=== PATIENT | female | born 1990 | race Caucasian/White ===

== ENCOUNTER 2022-12-19 15:19 | Emergency (ER) | payer OTHER, SELFPAY ==
[2022-12-19 15:26] VITALS: BP 139/81; PULSE 50; RESP 18; TEMP 36.4; O2SAT 100
--- NOTE | 2022-12-19 15:29 | ED.DENTAL ---
HPI - Dental/Oral General Chief complaint: Dental/Oral Stated complaint: Toothache Source: patient and RN notes reviewed History of Present Illness HPI Narrative: 32-year-old female presents to urgent care with complaints of right upper dental pain x2 weeks. Patient states her pain is intermittent. Patient states she had a filling up there at 1 time which she knows has fallen out at some point. Denies any fevers, chills, vomiting, trouble swallowing, or trouble breathing. Patient has been taking Tylenol and applying warm packs for comfort. Some parts of this dictation were generated by voice recognition software and may contain typographical and/or grammatical inaccuracies. Related Data Home Medications Medication Instructions Recorded Confirmed medroxyprogesterone 150 mg/mL See Rx Instructions .Route .COMPLEX 12/19/22 12/19/22 intramuscular syringe Allergies Allergy/AdvReac Type Severity Reaction Status Date / Time No Known Allergies Allergy Unverified 12/19/22 15:36 Review of Systems Review of Systems: CONSTITUTIONAL: Denies fever, chills, or sweats. EYES: Denies visual changes, redness, or discharge. ENT: Denies otalgia and sore throat. Right upper dental pain CARDIOVASCULAR: Denies chest pain, palpitations, or edema. RESPIRATORY: Denies cough or dyspnea. GASTROINTESTINAL: Denies abdominal pain, nausea, vomiting, or diarrhea. GENITOURINARY: Denies dysuria or hematuria. SKIN: Denies rash or itching. MUSCULOSKELETAL: Denies back pain, joint pain, or myalgia. NEUROLOGIC: Denies headache, numbness, or weakness. Pertinent positives per HPI. PMFSH Comments At the time of my signature, I reviewed and agree with the nursing past medical, surgical, social, and family history. There is no relevant family history pertinent to the patient complaint. Exam Narrative: GENERAL: This is a well-nourished, well-developed patient, in no apparent distress. HEAD: normocephalic, atraumatic. EYES: Sclera clear/white. Vision is grossly intact. EARS: External ears normal, auditory canals clear and without drainage. Hearing grossly intact. MOUTH: Slight swelling in the gums around teeth #2 & 3. Teeth #s 30-32 noted to be broken and decayed. NOSE: External nose normal with no obvious nasal discharge, nares without redness, no rhinorrhea. THROAT: Mucous membranes moist, posterior pharynx clear. NECK: Neck supple, non-tender without lymphadenopathy, masses or thyromegaly. CARDIOVASCULAR: Bradycardic, which pt states is normal for her. RESPIRATORY: Clear to auscultation. Breath sounds equal bilaterally. No wheezes, rales, or rhonchi. GASTROINTESTINAL: Abdomen soft, non-tender, nondistended. Bowel sounds are active. No hepato-splenomegaly, or palpable masses. No guarding. SKIN: warm, intact with no suspicious lesions or rash, good texture and turgor. NEURO: awake, alert, and oriented to person, place and time. There were no obvious focal neurologic abnormalities. Course Course Level of Care: Express Care Visit Vital Signs Vital signs: reviewed MDM - Dental/Oral MDM Narrative Medical decision making narrative: Take antibiotic until it's gone. Brushing teeth at least twice daily with gentle flossing. Avoid temperature extremes when you eat. Salt gargle to rinse your mouth after every meal You may apply ice to the face to reduce pain/swelling. For pain, you may take: Tylenol 650-1000mg by mouth every 4-6 hours. Do not exceed 4000mg in 24 hours. Advil (Ibuprofen) 600 mg by mouth every 6 hours. Do not exceed 2400mg in 24 hours. Also, recommend regular dental check up one-two times a year to prevent tooth decay and other periodontal disease. Follow-up with the dentist as soon as possible. See the list provided May call Mckayla @ the [address] [phone] hrs: Mon-Fri 8:30-5:00 Sat 8-noon [facility] (21
== END 2022-12-19 15:40 | disposition home or self-care (01) ==
PROVIDERS: Emergency Provider Nurse Practitioner Family
DX: K04.7 Periapical abscess without sinus (principal)
CPT/HCPCS: 99203; G0463

== ENCOUNTER 2024-08-11 09:42 | Emergency (ER) | payer OTHER, SELFPAY ==
[2024-08-11 09:51] VITALS: BP 130/82; PULSE 40; RESP 16; TEMP 36.1; O2SAT 99
--- NOTE | 2024-08-11 09:52 | ED_ITS ---
HPI - Dental/Oral General Chief complaint: Dental/Oral Stated complaint: Toothache Time Seen by Provider: 08/11/24 09:55 Source: patient Mode of arrival: ambulatory History of Present Illness HPI Narrative: 34 y/o female presented for c/o right upper dental pain and facial swelling. onset yesterday. However she reports this tooth has had a filling that fell out, and has been treated for abscess to the site in the past. Does not have a d entist, but plans to establish since she has new dental insurance. Denies throat pain or swelling, difficulty maintaining secretions, n/v/d/f/c. Taking ibuprofen. MD Complaint: tooth pain Related Data Home Medications ?Medication ?Instructions ?Recorded ?Confirmed ?Last Taken ?Type No Home Medications 08/11/24 08/11/24 Unknown History Allergies Allergy/AdvReac Type Severity Reaction Status Date / Time No Known Allergies Allergy Verified 08/11/24 09:55 Review of Systems Review of Systems: CONSTITUTIONAL: Denies body aches, fever, chills ENT: Denies rhinorrhea, congestion, sore throat, or otalgia. Reports dental pain CARDIOVASCULAR: Denies chest pain, palpitations RESPIRATORY: Denies cough or dyspnea. SKIN: Denies rash, itching, or wounds. MUSCULOSKELETAL: Denies myalgia. NEUROLOGIC: Denies headache, numbness, tingling, or weakness. PMFSH Comments At time of signature, I have reviewed and agree with nursing past medical, surgical, social and family history unless otherwise noted. Please see nursing chart for further information. There is no relevant family history pertinent to the presenting complaint Exam Narrative: GENERAL: Appears in pain; no acute distress. HEAD: Normocephalic, atraumatic. EYES: EOMI. No redness or drainage. Conjunctivae normal. ENT: Dental pain location of #3 with upper gum erythema and swelling, no active drainage. mild right cheek swelling, tender. Mucous membranes pink and moist. TMs normal bilaterally. Throat normal. no dysphagia, odynophagia, dysphonia, or dyspnea. No uvular deviation or soft palate edema. NECK: Normal AROM. No lymphadenopathy.no induration below mandible, no neck pain. CHEST: No respiratory distress. Clear to auscultation. HEART: Regular rate and rhythm. No murmur appreciated. SKIN: Warm, dry, no rash. Normal skin turgor. NEURO: No focal deficits. Alert and oriented x3. Gait steady. Course Course Emergency Course: Patient is aware of diagnosis, understands and agrees to treatment plan. Anticipatory guidance given. Patient agrees to follow-up as directed and is aware of reasons to seek care at the emergency department. Portions of this record may have been created with voice recognition software Level of Care: Express Care Visit Vital Signs Vital signs: Vital Signs Temperature 97 F L 08/11/24 09:51 Pulse Rate 40 L 08/11/24 09:51 Respiratory Rate 16 08/11/24 09:51 Blood Pressure 130/82 08/11/24 09:51 Pulse Oximetry 99 08/11/24 09:51 Oxygen Delivery Room Air 08/11/24 09:51 Temperature 97 F L 08/11/24 09:51 Pulse Rate 40 L 08/11/24 09:51 Respiratory Rate 16 08/11/24 09:51 Blood Pressure 130/82 08/11/24 09:51 Pulse Oximetry 99 08/11/24 09:51 Oxygen Delivery Room Air 08/11/24 09:51 MDM - Dental/Oral MDM Narrative Medical decision making narrative: Patients pain and complaint coupled with physical findings are consistent with dental abscess . There are no focal signs of space occupying lesions that are compromising to the airway; Patient is non-toxic appearing. The floor of the mouth is soft with no signs of Koffi's Angina; Patient is without trismus or drooling and able to swallow secretions. Patient is felt appropriate for discharge home with dental follow up. Reports chronic low HR. Discussed physical exam findings. Advised supportive measures and signs/symptoms to go to the ER. Differential Diagnosis Differential diagnosis: Likely gingival abscess, dental caries, toothache, dental abscess, fracture of tooth and aphthous ulcer Discharge Plan Discharge Clinical Impression: Dental abscess Patient Disposition: Home, Self-Care Condition: Stable Instructions: Antibiotic Form, Dental Abscess (ED) Additional Instructions: Take antibiotic as directed May apply heat or ice to the face Gentle brushing and flossing. Rinse mouth with warm salt water at least 2 times a day. Alternate Tylenol and ibuprofen as needed for pain Follow-up with the dentist as soon as possible--see the list provided To the ER for worsening symptoms or concerns Patient Language: Citizen Of [place] Prescriptions: New ibuprofen 800 mg tablet 800 mg PO TID PRN (Reason: pain) Qty: 15 0RF lidocaine HCl [Lidocaine Viscous] 2 % solution 1 applic mucous membrane TID PRN (Reason: pain) Qty: 100 0RF Rx Instructions: apply with cotton swab to site of pain amoxicillin-pot clavulanate 875-125 mg tablet 1 tablet PO Q12H 7 Days Qty: 14 0RF No Action No Home Medications Follow-up/Referrals: PHYSICIAN NOT ON STAFF,NONSTAFF [Primary Care Provider] - Time of Disposition: 10:01
--- OUTSIDE RECORDS SUMMARY | 2024-08-16 08:47 | XMS_ITS | Clinical Summary ---
Author Organization [facility] Virtual Care Address [address] [place] [phone] Phone Care Team Providers Care Altitude Chamber Technician Name Role Phone Roberta Leigh MD Primary Care Provider [phone] Allergies Active Allergy Reactions Criticality Noted Date Comments Povidone-Iodine Rash High 04/29/2022 Red swollen bumps and itchy Medications oxyCODONE-aceta minophen (PERCOCET) 5-325 mg per tabletIndicatio ns:Pain Take 1-2 tablets by mouth every 8 (eight) hours as needed for pain 20 tablet Active Additional Information Patient not taking.Reported on 12/27/2023 Active Problems Problem Noted Date Diagnosed Date Foreign body of left upper arm 04/14/2022 Overview (04/14/2022): Added automatically from request for surgery [id number] Resolved Problems Problem Noted Date Diagnosed Date Resolved Date Reducible umbilical hernia 11/17/2023 0 01/05/2024 Assessment & Plan (11/29/2023 1:39 PM CDT): Umbilical hernia=- discussed open repair of the hernia with or without mesh, along with risks, benefits and post operative period to which the patient is understanding and agreeable. Immunizations Name Administration Dates Next Due Influenza, Trivalent, IM (MDV) 04/27/2015 Surgical History Surgery Date Site/Laterality Comments CARDIAC ELECTROPHYSIOLOGY ST UDY AND ABLATION INTRAUTERINE DEVICE INSERTION removal HERNIA REPAIR 12/13/2023 Open umbillical hernia repair Medical History Medical History Date Comments PVC (premature ventricular contraction) Motion sickness Constipation Family History Medical History Relation Name Comments No Known Problems Father Breast cancer Mother Relation Name Status Comments Father Alive Mother Alive Social History Tobacco Use Types Packs/Day Years Used Date Smoking Tobacco: Never Smokeless Tobacco: Never Tobacco Cessation:Counseling Given: Not Answered AUDIT-C Answer Date Recorded Frequency of Alcohol Consumption Not on file 12/13/2023 Q2: How many drinks containi ng alcohol do you have on a typical day when you are drinking? Patient does not drink Frequency of Binge Drinking Not on file 11/23 Personal Safety Answer Date Recorded Have you ever been in or are you currently in a harmful physical or emotional relationship or is someone making you feel afraid or unsafe? 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 Gender Identity Not on file Sexual Orientation Not on file Obstetrics History Last Filed Vital Signs Vital Sign Reading Time Taken Comments Blood Pressure 122/81 12/27/2023 1:23 PM CDT Pulse 59 12/27/2023 1:23 PM CDT Temperature 36.4 ??C (97.5 ??F) 12/27/2023 1:23 PM CD T Respiratory Rate 18 12/13/2023 11:1 4 AM CDT Oxygen Saturation 97% 12/27/2023 1:23 PM CDT Inhaled Oxygen Concentration - - Weight 103.1 kg (227 lb 6.4 oz) 12/27/2023 1:23 PM CDT Height 172.7 cm (5' 8 ) 12/27/2023 1:23 PM CDT Body Mass Index 34.58 12/27/2023 1:23 PM CDT Plan of Treatment Health Maintenance Due Date Last Done Comments Cervical Cancer Screening 1990 Depression Screening 1990 Hepatitis C Screening 1990 Varicella Vaccines (1 of 2 - 13+ 2-dose series) 2003 Hepatitis B Screening 2008 Regular Well Visit/Exam 18-64 2008 Covid-19 Vaccine (3 - 2023-2 5 season) 2024 03/06/2021, 02/05/2021 Influenza Vaccine (#1) 2024 04/27/2015 DTaP/Tdap/Td Vaccine (2 - Td or Tdap) 12/25/2025 12/26/2015 HPV Vaccines Aged Out No longer eligi ble based on patient's age to complete this topic Pneumococcal vaccine <65 Aged Out No longer eligible based on patient's age to complete this topic Insurance [facility] Care Teams Altitude Chamber Technician Relationship Specialty Start Date End Date Roberta Leigh MD [address] [place] [address] DR TERRELL [address] [place] [id number] PCP - General Family Medicine 05/13/21
--- OUTSIDE RECORDS SUMMARY | 2024-08-16 08:47 | XMS_ITS | Clinical Summary ---
Author Organization [facility] Address [address] [place] [address] Care Team Providers Care Brim Flexer Name Role Phone Unavailable Primary Care Provider Unavailabl e Source Comments [facility],non-owned Affiliates and Associated Physician Practices is amultiple site organization consisting of ambulatory clinics and hospital sitesin [place], [place], [place] and [place]. This disclosure is being madepursuant to the Care Everywhere program and may not contain all information available regarding this patient. Last updated 18.[facility] Allergies No known active allergies Medications * Be aware that medications may not be up to date on this document. Alwaysverify current medications with the patient. Medication Sig Dispensed Refills Start Date End Date Status Etonogestrel (NEXPLANON SC) Active Social History Tobacco Use Types Packs/Day Years Used Date Smoking Tobacco: Never Smokeless Tobacco: Never Alcohol Use Standard Drinks/Week Comments Never 0 (1 standard drink = 0.6 oz pur e alcohol) AUDIT-C Answer Date Recorded Q1: How often do you have a drink containing alc ohol? Never 08/20/2020 Average Number of Drinks Not on file 021 Frequency of Binge Drinking Not on file 07/26 Sex and Gender Information Value Date Recorded Sex Assigned at Not on file Gender Identity Female 08/18/2020 2:38 PM SPECIAL INVESTIGATOR Sexual Orientation Not on file Last Filed Vital Signs Vital Sign Reading Time Taken Comments Blood Pressure 124/80 08/20/2020 4:00 PM SPECIAL INVESTIGATOR Pulse 74 08/20/2020 4:00 PM SPECIAL INVESTIGATOR Temperature 37.2 ??C (98.9 ??F) 08/20/2020 4:00 PM CS T Respiratory Rate 16 08/20/2020 4:00 PM SPECIAL INVESTIGATOR Oxygen Saturation 98% 08/20/2020 4:00 PM SPECIAL INVESTIGATOR Inhaled Oxygen Concentration - - Weight 95.3 kg (210 lb) 08/20/2020 4:00 PM SPECIAL INVESTIGATOR Height 172.7 cm (5' 8 ) 08/20/2020 4:00 PM SPECIAL INVESTIGATOR Body Mass Index 31.93 08/20/2020 4:00 PM SPECIAL INVESTIGATOR Plan of Treatment Health Maintenance Due Date Last Done Comments PAP SMEAR 1990 HIV SCREENING 2005 HEPATITIS C SCREENING 07/02/2008 DTAP/TDAP/TD VACCINES (1 - Tdap) 2009 HEPATITIS B VACCINE (1 of 3 - 19+ 3-dose series) 2009 COVID-19 VACCINE (2023-2 5 season) 2024 INFLUENZA VACCINE (#1) 2024 04/27/2015 DEPRESSION SCREENING 07/25/2024 ZOSTER VACCINE (1 of 2) 2040 HIB VACCINE Aged Out No longer eligi ble based on patient's age to complete this topic HPV VACCINE Aged Out No longer eligi ble based on patient's age to complete this topic MENINGOCOCCAL (Group B) VACCINE Aged Out No longer eligible based on patient's age to complete this topic MENINGOCOCCAL VACCINE Aged Out No evelyn baldev eligible based on patient's age to complete this topic PNEUMOCOCCAL VACCINE Aged Out No long er eligible based on patient's age to complete this topic
--- OUTSIDE RECORDS SUMMARY | 2024-08-16 08:47 | XMS_ITS | Referral Summary ---
Author Organization [facility] Virtual Care Address [address] [place] [phone] Phone Care Team Providers Care Brine Purifier Name Role Phone Roberta Leigh MD Primary Care Provider Allergies Active Allergy Reactions Criticality Noted Date [...] (04/14/2022): Added automatically from request for surgery [id number] Resolved Problems Problem Noted Date Diagnosed Date Resolved Date Reducible umbilical hernia 11/17/2023 0 01/05/2024 Assessment & Plan (11/29/2023 1:39 PM CDT): Umbilical hernia=- discussed open repair of the hernia with or without mesh, along with risks, benefits and post operative period to which the patient is understanding and agreeable. Immunizations Name Administration Dates Next Due Influenza, Trivalent, IM (MDV) 04/27/2015 Social History Tobacco Use Types Packs/Day Years [...] on file Legal Sex Female 3:18 AM TRIM TECHNICIAN Gender Identity Not on file Sexual Orientation Not on file Last Filed [...] 12/27/2023 1:23 PM CDT Plan of Treatment Not on file Insurance [facility] Care Teams Brine Purifier Relationship Specialty Start Date End Date Roberta Leigh MD [address] [place] [address] [place] [address] PCP - General Family Medicine 05/13/21
--- OUTSIDE RECORDS SUMMARY | 2024-08-16 08:47 | XMS_ITS | Patient Health Summary ---
Author Organization [facility] Address [address] [place] [address] Care Team Providers Care Pharmacy Helper Name Role Phone Unavailable Primary Care Provider Unavailabl e Note from [facility],non-owned Affiliates and Associated Physician Practices is amultiple site organization consisting of ambulatory clinics and hospital sitesin [place], [place], [place] and [place]. This disclosure is being madepursuant to the Care Everywhere program and may not contain all information available regarding this patient. Last updated 18.[facility] Allergies No known active allergies Medications * Be aware that medications may not be up to date on this document. Alwaysverify current medications with the patient. * Etonogestrel (NEXPLANON SC) Social History Tobacco Use Types Packs/Day Years [...] file Gender Identity Female 08/18/2020 2:38 PM PULP REFINER OPERATOR Sexual Orientation Not on file Last Filed Vital Signs Vital Sign Reading Time Taken Comments Blood Pressure 124/80 08/20/2020 4:00 PM PULP REFINER OPERATOR Pulse 74 08/20/2020 4:00 PM PULP REFINER OPERATOR Temperature 37.2 ??C (98.9 ??F) 08/20/2020 4:00 PM CS T Respiratory Rate 16 08/20/2020 4:00 PM PULP REFINER OPERATOR Oxygen Saturation 98% 08/20/2020 4:00 PM PULP REFINER OPERATOR Inhaled Oxygen Concentration - - Weight 95.3 kg (210 lb) 08/20/2020 4:00 PM PULP REFINER OPERATOR Height 172.7 cm (5' 8 ) 08/20/2020 4:00 PM PULP REFINER OPERATOR Body Mass Index 31.93 08/20/2020 4:00 PM PULP REFINER OPERATOR Procedures * SKIN TEST PPD - POINT OF CARE(Performed 08/20/2020) Performed for Screening for tuberculosis Results * (ABNORMAL) SKIN TEST PPD - POINT OF CARE (08/20/2020 3:57 PM PULP REFINER OPERATOR) PPD 0mm(Negati ve) [facility] Other MISCELLANEOUS SAMPLE S / Unknown 08/20/2020 3:57 PM PULP REFINER OPERATOR [place] PSYCHOLOGY PHYSICIAN-BOAT RIDE OPERATOR LAB - POINT OF CARE ORDERABLES [facility] [phone]
--- OUTSIDE RECORDS SUMMARY | 2024-08-16 08:47 | XMS_ITS | Referral Summary ---
Author Organization [facility] Address [address] [place] [address] Care Team Providers Care Armature Winder Helper Repair Name Role Phone Unavailable Primary Care Provider Unavailabl e Source Comments [facility],non-owned Affiliates and Associated Physician Practices is amultiple site organization consisting of ambulatory clinics and hospital sitesin [place], [place]. This disclosure is being madepursuant to the Care Everywhere program and may not contain all information available regarding this patient. Last updated 18.[facility] Allergies No known active allergies Medications * [...] file Gender Identity Female 08/18/2020 2:38 PM OILING MACHINE OPERATOR Sexual Orientation Not on file Last Filed Vital Signs Vital Sign Reading Time Taken Comments Blood Pressure 124/80 08/20/2020 4:00 PM OILING MACHINE OPERATOR Pulse 74 08/20/2020 4:00 PM OILING MACHINE OPERATOR Temperature 37.2 ??C (98.9 ??F) 08/20/2020 4:00 PM CS T Respiratory Rate 16 08/20/2020 4:00 PM OILING MACHINE OPERATOR Oxygen Saturation 98% 08/20/2020 4:00 PM OILING MACHINE OPERATOR Inhaled Oxygen Concentration - - Weight 95.3 kg (210 lb) 08/20/2020 4:00 PM OILING MACHINE OPERATOR Height 172.7 cm (5' 8 ) 08/20/2020 4:00 PM OILING MACHINE OPERATOR Body Mass Index 31.93 08/20/2020 4:00 PM OILING MACHINE OPERATOR Plan of Treatment Not on file Administered Medications
--- OUTSIDE RECORDS SUMMARY | 2024-08-16 08:47 | XMS_ITS | Data Portability ---
Author Organization [facility] TAMIUlisses Address [address] [place] [address] Care Team Providers Care Hotel Maintenance Engineer Name Role Phone ROBERTA YANG Primary Care Provider [phone] Assessment No assessment recorded. Plan of Treatment Reminders Order Date Submit Date Provider Last Modified By Organization Details Last Modified Time Details Appointments None record ed. Lab PPD (purif ied protei n deriva tive), skin test 2022 023 [facility] In-Office Order, Internal Use Only DO Not Attach Compendium DO Not Attach Compendium, Do Not Delete/merge, [address] 3 11:08:10 CBC w/ auto diff 2022 023 [facility], [address], [place], [address], 3 19:08:40 HbA1c (hemog lobin A1c), blood 2022 023 [facility], [address], [place], [address], 3 06:16:03 TSH, ultra- sensit deana, serum 2022 023 [facility], [address], [place], [address], 3 06:16:02 Referral nutrit ionist /hunteri bobby referr al 2022 023 [facility] 1 [facility] , [place], [address], 4 13:04:44 rocio hodgson n referr al 2023 024 [place] Mae MD, 4 [facility] , [address], [place], [address], 4 14:58:24 Procedures None record ed. Surgeries None record ed. Imaging US, abdomi nal wall 2023 024 [facility], 1 [facility] , [place], [address], 4 16:25:33 Medication Orders medrox yproge steron e 150 mg/mL intram uscula r syring e 2022 023 marcella [facility], [address] [place] [address], [address], 4 16:40:55 Victoz a 3-Marcial 0.6 mg/0.1 mL (18 mg/3 mL) subcut aneous pen inject or [facility], [address] [place] [address], [address], 4 15:43:43 Victoz a 3-Marcial 0.6 mg/0.1 mL (18 mg/3 mL) subcut aneous pen inject or 2022 [facility], [address] [place] [address], [address], 4 15:43:43 Patient TargetsNo targets recorded. Patient Instructions Encounter Date Encounter Id Patient Instructions Last Modified By Organization Details Last Modified Time 06/08/2023 [id number] learning about tuberculosis (TB) mmetias Not available 06/08/2023 10:58:45 fatigue: care instructions mmetias Not available 06/08/2023 10:58:45 A healthy lifestyle: care instructions mmetias Not available 06/08/2023 10:58:44 body mass index: care instructions mmetias Not available 06/08/2023 10:58:44 learning about healthy weight mmetias Not available 06/08/2023 10:58:45 2023 [id number] constipation: care instructions mmetias Not available 2023 10:13:32 A healthy lifestyle: care instructions mmetias Not available 2023 10:11:44 10/11/2023 [id number] A healthy lifestyle: care instructions mmetias Not available 10/11/2023 17:01:11 12/22/2023 [id number] constipation: care instructions mmetias Not available 12/22/2023 16:38:05 A healthy lifestyle: care instructions mmetias Not available 12/22/2023 16:38:05 Reason for Referral Office Support Associate/dietitian Refer ral for Body mass index 30+ - obesity Referring Physician: Roberta Yang [facility], Encounter Date: 06/08/2023 General Surgeon Referral for Reducible umbilical hernia Referring Physician: Roberta Yang [facility] Medicine, Encounter Date: 10/11/2023 Results Created Date Observation Date Name Description Value Unit Range Abnormal Flag Note LastModifiedBy Organization Detail LastModifiedTime 06/10/2006/10/2023 CBC WITH DIFFE RENTI AL/PL ATELE T WBC 8.7 x10e3 /uL 3.4-10 .8 Not Available [facility] Department [address] [place], [address], 06/10/2023 19:08:40 06/10/20 23 06/10/2023 CBC WITH DIFFE RENTI AL/PL ATELE T RBC 4.35 x10e6 /uL 3.77-5 .28 Not Available [facility] Department [address] [place], [address], 06/10/2023 19:08:40 06/10/20 23 06/10/2023 CBC WITH DIFFE RENTI AL/PL ATELE T hemoglobin 12.8 g/dL 11.1-1 5.9 Not Available [facility] [address] [place], [address], 06/10/2023 19:08:40 06/10/20 23 06/10/2023 CBC WITH DIFFE RENTI AL/PL ATELE T hematocrit 39.6 % 34.0-4 6.6 Not Available [facility] [address] [place], [address], 06/10/2023 19:08:40 06/10/20 23 06/10/2023 CBC WITH DIFFE RENTI AL/PL ATELE T MCV 91 fL 79-97 Not Available [facility] Department [address] [place], [address], 06/10/2023 19:08:40 06/10/20 23 06/10/2023 CBC WITH DIFFE RENTI AL/PL ATELE T MCH 29.4 pg 26.6-3 3.0 Not Available [facility] Department [address] [place], [address], 06/10/2023 19:08:40 06/10/20 23 06/10/2023 CBC WITH DIFFE RENTI AL/PL ATELE T MCHC 32.3 g/dL 31.5-3 5.7 Not Available [facility] Department [address] [place], [address], 06/10/2023 19:08:40 06/10/20 23 06/10/2023 CBC WITH DIFFE RENTI AL/PL ATELE T RDW 13.0 % 11.5-1 4.5 Not Available [facility] Department [address] [place], [address], 06/10/2023 19:08:40 06/10/20 23 06/10/2023 CBC WITH DIFFE RENTI AL/PL ATELE T platelets 256 x10e3 /uL 150-45 0 Not Available [facility] Department [address] [place], [address], 06/10/2023 19:08:40 06/10/20 23 06/10/2023 CBC WITH DIFFE RENTI AL/PL ATELE T neutrophils 56 % notest b. Not Available [facility] [address] [place], [address], 06/10/2023 19:08:40 06/10/20 23 06/10/2023 CBC WITH DIFFE RENTI AL/PL ATELE T lymphs 32 % notest b. Not Available [facility] Department [address] [place], [address], 06/10/2023 19:08:40 06/10/20 23 06/10/2023 CBC WITH DIFFE RENTI AL/PL ATELE T monocytes 7 % notest b. Not Available [facility] Department [address] [place], [address], 06/10/2023 19:08:40 06/10/20 23 06/10/2023 CBC WITH DIFFE RENTI AL/PL ATELE T eos 4 % notest b. Not Available [facility] Department [address] [place], [address], 06/10/2023 19:08:40 06/10/20 23 06/10/2023 CBC WITH DIFFE RENTI AL/PL ATELE T basos 1 % notest b. Not Available [facility] Department [address] [place], [address], 06/10/2023 19:08:40 06/10/20 23 06/10/2023 CBC WITH DIFFE RENTI AL/PL ATELE T neutrophils (absolute) 4.8 x10e3 /uL 1.4-7. 0 Not Available [facility] Department [address] [place], [address], 06/10/2023 19:08:40 06/10/20 23 06/10/2023 CBC WITH DIFFE RENTI AL/PL ATELE T lymphs (absolute) 2.8 x10e3 /uL 0.7-3. 1 Not Available [facility] [address] [place], [address], 06/10/2023 19:08:40 06/10/20 23 06/10/2023 CBC WITH DIFFE RENTI AL/PL ATELE T monocytes(ab solute) 0.6 x10e3 /uL 0.1-0. 9 Not Available [facility] Department [address] [place], [address], 06/10/2023 19:08:40 06/10/20 23 06/10/2023 CBC WITH DIFFE RENTI AL/PL ATELE T eos (absolute) 0.4 x10e3 /uL 0.0-0. 4 Not Available [facility] Department [address] [place], [address], 06/10/2023 19:08:40 06/10/20 23 06/10/2023 CBC WITH DIFFE RENTI AL/PL ATELE T baso (absolute) 0.1 x10e3 /uL 0.0-0. 2 Not Available [facility] Department [address] [place], [address], 06/10/2023 19:08:40 06/10/20 23 06/10/2023 CBC WITH DIFFE RENTI AL/PL ATELE T immature granulocytes 0.2 % notest b. Not Available [facility] Department [address] [place], [address], 06/10/2023 19:08:40 06/10/20 23 06/10/2023 CBC WITH DIFFE RENTI AL/PL ATELE T immature grans (abs) 0.0 x10e3 /uL 0.0-0. 1 Not Available [facility] Department [address] [place], [address], 06/10/2023 19:08:40 06/10/20 23 06/10/2023 CBC WITH DIFFE RENTI AL/PL ATELE T NRBC 0 % 0-0 Not Available [facility] [address] [place], [address], 06/10/2023 19:08:40 06/10/2006/11/2023 TSH RFX ON ABNOR MAL TO FREE T4 TSH 1.040 uIU/m L 0.450- 4.500 Not Available [facility] [address] [facility], [place], [address], 06/11/2023 06:16:02 06/10/2006/11/2023 HEMOG LOBIN A1C hemoglobin A1C 5.3 % 4.8-5. 6 Predi abete s: 5.7 - 6.4 Diabe eli: >6.4 Glyce mehul contr ol for adult s with diabe eli: <7.0 Not Available [facility] [address] [facility], [place], [address], 06/11/2023 06:16:03 11/19/19 24 11/17/2023 US, abdom inal wall No observ ation record ed. [email or web address], [address], 11/22/2023 15:47:51 Result Notes None recorded. Problems Name Problem SNOMED Code Status Onset Date Resolution Date Notes Provider Name and Address Organization Details Recorded Time Cardiac arrhythm ia 318229362 Active 2020 ROBERTA YANG MD Attn: aBldo duggan,[address] 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, [place], [address], [facility] 1 13:01:55 Pregnanc y-induce d hyperten kika [id number] Completed LAST Alise Isringhau sen null, [place] - [facility] 6 17:33:05 Vaginal discharg e 017265990 Active Ely Hoffman MD Attn: Baldo olga lidia,[address] [place], [address], [place] [facility] 6 20:56:59 Vaginal discharg e 452300459 Completed Alise Isringhau sen [place], [place] [facility] 6 17:33:04 Nausea 942266668 Active Ely Hoffman MD Attn: Baldo duggan,[address] [facility], [place], [address], [place] [facility] 6 20:56:59 Nausea 943006028 Completed Alise Isringhau sen null, [place] - [facility] 6 17:33:04 Bacteria l vaginosi s 655173751 Active Ely Hoffman MD Attn: Baldo duggan,[address] [place], [address], [place] [facility] 6 20:56:59 Bacteria l vaginosi s 010319912 Completed Alise Isringhau sen [place], [place] [facility] 6 17:33:05 Gestatio n period, 28 weeks 92782509 Active Ely Hoffman MD Attn: Baldo duggan,[address] [place], [address], [place] [facility] 6 20:56:59 Gestatio n period, 28 weeks 99829103 Completed Alise [place]ringh[place], [place] [facility] 6 17:33:04 Gestatio n period, 32 weeks 3384066 Active Ely Hoffman MD Attn: Baldo duggan,[address] [place], [address], [place] [facility] 6 20:56:59 Gestatio n period, 32 weeks 6864577 Completed Alise [place]ringh[place], [place] [facility] 6 17:33:05 Postpart um care Active Ely Hoffman MD Attn: Baldo g,[address] [facility], [place], [address], [place] - [facility] 6 21:01:21 Problem Notes None recorded. Procedures Surgical History Date Name Laterality Status Provider Name and Address Organization Details Recorded Time 2 Generic Procedure completed Juan Lyle MD Attn: Accounting,[address] [facility], [place], [address], [place] [facility] 03/31/2022 13:20:16 2 Control Implant Removal completed ROBERTA YANG MD Attn: Accounting,[address] [facility], [place], [address], [place] [facility] 03/22/2022 12:21:23 1 Control Implant Insertion completed ROBERTA YANG MD Attn: Accounting,[address] [facility], [place], [address], [place] [facility] 06/04/2021 10:29:05 1 Control Implant Removal completed ARTIE Marks Attn: Accounting,[address] [facility], [place], [address], [place] [facility] 11/03/2020 14:36:33 8 Control Implant Insertion completed Ely Hoffman MD Attn: Accounting,[address] [facility], [place], [address], [place] [facility] 04/13/2018 10:41:14 7 Control Implant Removal completed Ely Hoffman MD Attn: Accounting,[address] [facility], [place], [address], [place] [facility] 03/11/2017 12:00:00 6 Control Implant Insertion completed Ely Hoffman MD Attn: Accounting,[address] [facility], [place], [address], [place] [facility] 05/24/2016 11:16:27 6 Date of Last Pap Smear completed Michelle Mariano [place] [facility] 03/05/2016 09:57:53 5 Control Implant Removal completed Juan Tothe [place] 11/07/2014 15:12:06 Heart Surgery completed Jaylin Willis [place] 09/14/2016 11:56:46 Imaging Results Imaging Date Name Status LastModified by Organiz ation Details LastModified Time 11/17/2023 US, abdominal wall completed [facility] 1 [facility] [place] [place], [address], 11/22/2023 15:47:51 Procedure Notes None recorded. Medical Equipment None Reported. Allergies Allergen ID Allergen Name Allergen Category Reaction Reaction Severity Criticality Documentation Date Start Date Code Code System Note Provider Name and Address Organization Details Recorded Time [id number] Betadine medicatio n rash moderate high 10/11/2023 18208 0 RxNorm Not Available Not Available Not Available Medications Name Sig Start Date Stop Date Status Note LastModified by Organization Details LastModified Time amoxicill in 500 mg capsule TAKE 1 CAPSULE BY MOUTH EVERY 12 HOURS FOR 10 DAYS 03/04 completed Not Available Not Available Not Available fluconazo le 150 mg tablet TAKE 1 TABLET BY MOUTH ONCE DAILY FOR 1 DOSE 03/22 completed Not Available Not Available Not Available hydrocodo ne 5 mg-acetam inophen 325 mg tablet 03/26 completed Not Available Not Available Not Available pyridoxin e (vitamin B6) 25 mg tablet Take 1 tablet every 6 hours by oral route for 30 days. 2015 active Not Available Not Available Not Avai lable permethri n 5 % topical cream APPLY TOPICALL Y AND MASSAGE THOROUGH LY INTO THE SKIN FROM HEAD TO THE SOLES OF THE FEET AND LEAVE ON FOR 8-14 HOURS. WASH OFF THOROUGH LY. 09/14 completed Not Available Not Available Not Available omeprazol e 40 mg capsule,d elayed release 03/26 completed Not Available Not Available Not Available tramadol 50 mg tablet 03/26 completed Not Available Not Available Not Available ondansetr on 8 mg disintegr ating tablet DISSOLVE 1 TABLET IN MOUTH TWICE DAILY NEEDED FOR 30 DAYS 10/10 completed Not Available Not Available Not Available amoxicill in 400 mg-potass ium clavulana te 57 mg/5 mL oral suspensio n active Not Available Not Available Not Available Vitamin tablet Take 1 tablet every day by oral route for 30 days. 03/11 completed Not Available Not Available Not Available oxycodone -acetamin ophen 5 mg-325 mg tablet TAKE 1 TO 2 TABLETS BY MOUTH EVERY 8 HOURS NEEDED FOR PAIN 12/21 completed Not Available Not Available Not Available Flagyl 500 mg tablet Take 1 tablet every 12 hours by oral route for 7 days. 03/11 completed Not Available Not Available Not Available sulfaceta mide sodium 10 % eye drops 03/26 completed Not Available Not Available Not Available ondansetr on 4 mg disintegr ating tablet DISSOLVE 1 TABLET IN MOUTH EVERY 8 HOURS NEEDED 09/14 completed Not Available Not Available Not Available Unisom (doxylami ne) 25 mg tablet Take 1 tablet every 6 hours by oral route for 30 days. 2015 active Not Available Not Available Not Avai lable medroxypr ogesteron e 150 mg/mL intramusc ular suspensio n Inject 1 mL every 3 months by intramus cular route for 90 days. 06/03 completed Not Available Not Available Not Available medroxypr ogesteron e 150 mg/mL intramusc ular syringe Inject 1 mL every 3 months by intramus cular route for 90 days. 10/10 completed Given at 9:45 am Pt. tolerate d well Not Available Not Available Not Available RhoGAM Ultra-Deacon tered PLUS 1,500 unit (300 mcg) intramusc ular syringe Inject 1 syringe by intramus cular route. 2015 active Not Available Not Available Not Avai lable Nexplanon 68 mg subdermal implant Inject 1 implant by subcutan eous route. 03/26 completed Not Available Not Available Not Available Diclegis 10 mg-10 mg tablet,de layed release Take 1 tablet every day by oral route as directed for 30 days. 2015 active Not Available Not Available Not Avai lable Victoza 3-Marcial 0.6 mg/0.1 mL (18 mg/3 mL) subcutane ous pen injector INJECT 1.8MG SUBCUTAN EOUSLY ONCE DAILY 12/21 completed Not Available Not Available Not Available TRUEplus Pen Needle 31 gauge x /16 USE DIRECTED active Not Available Not Available No t Available Vitals Date Recorded Body height Provider Name an d Address Organization Details Last Updated DateTime 06/03/2023 172.72 cm Roxy Becektt MA [facility] 2022 10:55:23 Date Recorded Body mass index (BMI) Body weight Provider Name and Address Organization Details Last Updated DateTime 06/03/2023 34.3 kg/m2 588204.38 g Roxy Beckett MA [facility] 06/03/2023 10:55:42 Date Recorded Oxygen saturation Oxygen saturation in Arterial blood by Pulse oximetry Provider Name and Address Organization Details Last Updated DateTime 06/03/2023 99 % 99 % Roxy Beckett MA [facility] 06/03/2023 10:56:02 Date Recorded Heart rate Provider Name an d Address Organization Details Last Updated DateTime 06/03/2023 53 /min Roxy Beckett MA [facility] 2022 10:56:06 Date Recorded Respiratory rate Provider Name a nd Address Organization Details Last Updated DateTime 06/03/2023 16 /min Roxy Beckett MA [facility] 06/03/2023 10:56:08 Date Recorded Body temperature Provider Name a nd Address Organization Details Last Updated DateTime 06/03/2023 96.8 [degF] Roxy Beckett MA [facility] 06/03/2023 10:56:12 Date Recorded Body height Provider Name an d Address Organization Details Last Updated DateTime 06/08/2023 172.72 cm Lizzie Chavez MA [facility] 023 09:56:18 Date Recorded Body mass index (BMI) Body weight Provider Name and Address Organization Details Last Updated DateTime 06/08/2023 34.4 kg/m2 038093.93 g Lizzie Chavez MA [facility] 06/08/2023 09:56:29 Date Recorded Body temperature Provider Name a nd Address Organization Details Last Updated DateTime 06/08/2023 98.3 [degF] Lizzie Chavez MA [facility] 2022 09:56:33 Date Recorded Heart rate Provider Name an d Address Organization Details Last Updated DateTime 06/08/2023 68 /min Lizzie Chavez MA [facility] 023 09:57:47 Date Recorded Respiratory rate Provider Name a nd Address Organization Details Last Updated DateTime 06/08/2023 18 /min Lizzie Chavez MA [facility] 023 09:57:53 Date Recorded Body height Provider Name an d Address Organization Details Last Updated DateTime 2023 172.72 cm Lizzie Chavez MA [facility] 023 09:13:38 Date Recorded Body mass index (BMI) Body weight Provider Name and Address Organization Details Last Updated DateTime 2023 33.4 kg/m2 20523.53 g Lizzie Chavez MA [facility] 2023 09:13:56 Date Recorded Body temperature Provider Name a nd Address Organization Details Last Updated DateTime 2023 98.3 [degF] Lizzie Chavez MA [facility] 2022 09:16:00 Date Recorded Heart rate Provider Name an d Address Organization Details Last Updated DateTime 2023 68 /min Lizzie Chavez MA [facility] 023 09:16:10 Date Recorded Respiratory rate Provider Name a nd Address Organization Details Last Updated DateTime 2023 18 /min Lizzie Chavez MA [facility] 023 09:16:13 Date Recorded Body height Provider Name an d Address Organization Details Last Updated DateTime 10/11/2023 172.72 cm Winter mcguire LPN [facility] 10/11/2023 16:37:51 Date Recorded Body mass index (BMI) Body weight Provider Name and Address Organization Details Last Updated DateTime 10/11/2023 33.1 kg/m2 68381.64 g Winter Correia LPN [facility] 10/11/2023 16:38:21 Date Recorded Heart rate Provider Name an d Address Organization Details Last Updated DateTime 10/11/2023 59 /min Winter Botellolecalin mcguire BEAUTY OPERATOR APPRENTICE [place] - [facility] 10/11/2023 16:40:26 Date Recorded Oxygen saturation Oxygen saturation in Arterial blood by Pulse oximetry Provider Name and Address Organization Details Last Updated DateTime 10/11/2023 99 % 99 % Winter Cinthia Correia LPN [place] [facility] 10/11/2023 16:38:41 Date Recorded Body temperature Provider Name a nd Address Organization Details Last Updated DateTime 10/11/2023 99.1 [degF] Winter Botellonora Correia BEAUTY OPERATOR APPRENTICE [place] [facility] 10/11/2023 16:38:52 Date Recorded Respiratory rate Provider Name a nd Address Organization Details Last Updated DateTime 10/11/2023 18 /min Winter Correia LPN [place] [facility] 10/11/2023 16:40:37 Date Recorded Body height Provider Name an d Address Organization Details Last Updated DateTime 12/22/2023 172.72 cm EB Seymour - [facility] 024 15:40:45 Date Recorded Body mass index (BMI) Body weight Provider Name and Address Organization Details Last Updated DateTime 12/22/2023 34.8 kg/m2 814567 g EB Seym[facility] - [facility] 12/22/2023 15:41:49 Date Recorded Body temperature Provider Name a nd Address Organization Details Last Updated DateTime 12/22/2023 98.3 [degF] EB Seym[facility] - [facility] 2023 15:41:54 Date Recorded Heart rate Provider Name an d Address Organization Details Last Updated DateTime 12/22/2023 60 /min EB Seymour - [facility] 024 15:41:57 Date Recorded Respiratory rate Provider Name a nd Address Organization Details Last Updated DateTime 12/22/2023 18 /min EB Seym[place] - [facility] 024 15:43:16 Date Recorded Systolic blood pressure Diastolic blood pressure Provider Name and Address Organization Details Last Updated DateTime 06/03/2023 130 mm[Hg] 77 mm[Hg] Roxy Beckett MA [facility] 06/03/2023 10:55:54 Date Recorded Systolic blood pressure Diastolic blood pressure Provider Name and Address Organization Details Last Updated DateTime 06/08/2023 110 mm[Hg] 68 mm[Hg] Lizzie Chavez MA [facility] 06/08/2023 09:58:02 Date Recorded Systolic blood pressure Diastolic blood pressure Provider Name and Address Organization Details Last Updated DateTime 2023 112 mm[Hg] 80 mm[Hg] Lizzie Chavez MA [facility] 2023 09:16:36 Date Recorded Systolic blood pressure Diastolic blood pressure Provider Name and Address Organization Details Last Updated DateTime 10/11/2023 148 mm[Hg] 84 mm[Hg] Winter Correia LPN [facility] 10/11/2023 16:40:18 Date Recorded Systolic blood pressure Diastolic blood pressure Provider Name and Address Organization Details Last Updated DateTime 10/11/2023 152 mm[Hg] 84 mm[Hg] Winter Correia LPN [facility] 10/11/2023 16:52:41 Date Recorded Systolic blood pressure Diastolic blood pressure Provider Name and Address Organization Details Last Updated DateTime 12/22/2023 130 mm[Hg] 80 mm[Hg] Lizzie Chavez MA [facility] 12/22/2023 15:43:25 Social History Question Answer Notes LastModified by Organizat ion Details LastModified Time Tobacco Smoking Status Never Smoker Juan bronson [facility] 11/07/2014 15:12:18 Do You Have An Advance Directive? No Information not available 03/26/2021 What Is Your Level Of Alcohol Consumption? None Information not available 03/26/2021 Are You Blind Or Do You Have Difficulty Seeing? Yes Wear Glasses Information not available 03/26/2021 What Is Your Level Of Caffeine Consumption? Occasional 1 Soda And 1 Coffee A Week [email or web address] Information not available 10/11/2023 In The 14 Days Before Symptom Onset, Have You Had Close Contact With A [facility] While That Case Was Ill? No Information not available 03/26/2021 In The 14 Days Before Symptom Onset, Have You Had Close Contact With A Person Who Is Under Investigation For COVID-19 While That Person Was Ill? Yes Works Covid Floor At [employer] Information not available 03/26/2021 Have You Been To An Area Known To Be High Risk For COVID-19? No Information not available 03/26/2021 Are You Currently Employed? Yes Information not available 03/26/2021 Are You Deaf Or Do You Have Serious Difficulty Hearing? No Information not available 03/26/2021 What Type Of Diet Are You Following? REGULAR Information not available 03/26/2021 What Is The Highest Grade Or Level Of School You Have Completed Or The Highest Degree You Have Received? 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 No Information no t available 03/31/2022 Are There Any Guns Present In Your Home? No Information not available 03/26/2021 What Was The Date Of Your Most Recent Tobacco Screening? 12/22/2023 Information not available 12/22/2023 How Many Children Do You Have? 2 Information not available 03/26/2021 Do You Have Any Pets? No Information not available 03/31/2022 What Is Your Relationship Status? Single Information not available 03/26/2021 Do You Use Your Seat Belt Or Car Seat Routinely? Yes Information not available 03/26/2021 Are You Sexually Active? No Information not available 03/26/2021 Do You Have Smoke And Carbon Monoxide Detectors In Your Home? Yes Information not available 03/26/2021 Are You Passively Exposed To Smoke? No Information no t available 03/26/2021 Do You Feel Stressed (tense, Restless, Nervous, Or Anxious, Or Unable To Sleep At Night)? [id number] Information not available 03/26/2021 Do You Use Any Illicit Or Recreational Drugs? No Information not available 03/26/2021 Do You Use Sunscreen Routinely? Yes Information not available 03/26/2021 Has Tobacco Cessation Counseling Been Provided? Yes Information not available 09/14/2022 On What Date Was Tobacco Cessation Counseling Provided? 12/22/2023 Information not available 12/22/2023 Do You Or Have You Ever Used Any Other Forms Of Tobacco Or Nicotine? No Information not available 09/14/2022 Sex: Female Functional Status Question Answer Note LastModified by Organizat ion Details LastModified Time Are you able to care for yourself? Yes Information not available 03/26/2021 What is your exercise level? Occasional Information not available 03/26/2021 Mental Status None recorded. Family History Relationship Description Onset Age of this Age Resolved Age Notes LastModified by Organization Details LastModified Time Mother Malignant tumor of breast okolade Not available 2015 20:56:55 Notes:Cousin of brain c ancer in 2019/Aunt has been Dx. with Breast cancer Medical History Condition Response Coronary Artery Disease N Kidney Cyst N Blood Diseases N Hyperthyroidism N Blood disorders N Blood Transfusion N MRSA N Emphysema N Depression N COPD N Blood Clots N Pneumonia N Premature N Peripheral Arterial Disease N Edema N TIA N Headaches/Migraines N Anxiety Disorder N Obesity N Polyps N Infertility N Acid Reflux (GERD) N Hematuria N Stroke N Neck Injury N Polio N Hospital Admission other than N Neurologic Disorder N Other Sleep Disorders N Rheumatoid Arthritis N Fibromyalgia N Abdominal Aortic Aneurysm Repair N Kidney Disease N Heart Conditions N Heart Disease/Heart Problems N Hospitalizations N Brain Tumors N Acne N Skin Problems N Eating Disorder N Meningitis N Constipation N Tuberculosis N Cerebral Palsy N Myocardial Infarction N Asthma N Substance Abuse N Peripheral Vascular Disease N Vertigo N Sleep Disorder N Cirrhosis N Pulmonary Embolism N Chicken Pox N Hematologic Disease N Flomax Use Past or Present N Anxiety/Depression N Thyroid Disease N Colon Cancer N Lung Disease N Glaucoma N Developmental or Behavioral Disorders N Bipolar N Pacemaker N Diverticulitis/Diverticulosis N Orthopedic Problems N Anesthesia Complications N Orthotics N Head Injury/Concussion N Congenital Anomalies N Martin Bite N Chronic Kidney Disease N Endometriosis N Liver Disease N Schizophrenia N Dialysis N Speech Delay N Chronic Obstructive Pulmonary Disease N Parkinson's Disease N Thyroid Problems N GI Problems N Developmental Delay N Anemia N Multiple Sclerosis N Immune System Disorder N Colon Polyps N Heart Attack (NC) N Diabetes N Cardiomyopathy N Blood Transfusions N Heart Problems/Murmur N Eye Trauma N Congestive Heart Failure (CHF) N Valvular Heart Disease N Hyperlipidemia N Double Vision N Abuse/Domestic Violence N Hepatitis B N Lupus N Epilepsy/Seizures N Reflux/GERD N Aneurysm N Heart Disease N Bronchitis N Pre-Eclampsia N Hypertension N Heart Failure N Other N Gout N High Blood Pressure N Atrial Fibrillation N Kidney Stones N Head Trauma/Injury N Congenital Heart Disease N Spine Problems N Gastrointestinal Disease N Lung Mass N Sinusitis N Obstructive Sleep Apnea N Muscle, Joint, or Bone Problems N Autoimmune disease N Vision or Eye Problems N Arthritis N Blood Clot N Cancer N Seasonal allergies N Leg or Foot Ulcers N Raynaud's Disease N Aortic Aneurysm N Arrhythmia N Headaches N Heart Problems N Ambloypia N Ear or Hearing Problems N Hyperparathyroidism N Migraines N Artificial Joints N Kidney or Bladder Problems N NSAID Use N Encephalitis N PTSD N Ulcers N Prostate Hypertrophy N Bleeding Disorder N AIDS/HIV N Urinary Tract Infection N Back Problems N Allergies N Atrial Flutter N GERD/Reflux N Hepatitis N Autism Spectrum Disorder (ASD) N Breast Cancer N Hernia N Hypothyroidism N Breast Problem N Genitourinary Disease N Deep Vein Thrombosis N Varicose Veins N Cystic Fibrosis N Hearing Loss N Developmental Problems N Carotid Disease N Vitamin D Deficiency N ADHD N Bladder or Kidney Problems N High Cholesterol N Meniers N Valvular Abnormalities N Psychiatric/Mental Health Condition N Organ Transplant N Foot Deformity N Allergies/Hayfever N Dyslipidemia N Hyponatremia N Diabetic Eye Disease N Osteoporosis/Osteopenia N Back Pain N Proteinuria N Mental Illness N Neurological Problems N Ovarian Cancer N Bedwetting N Seizures/Epilepsy N Kidney Failure N Ocular trauma N Diverticulitis N Dementia N Sleep Apnea N Mental Problems N Warfarin Management N Osteoporosis N Gynecological History Statement/Question Response Abnormal Pap N Sexually Active? Y Menses Monthly N STIs/STDs N Date of Last Pap Smear 08/26/2015 Sexual Problems? N Current Control Method Implant LMP Obstetrics History GPAL:G 2 P 2 0 0 2 Type Value Full Term 2 Living 2 Total 2 Immunizations Vaccine Type Date Status Note Provider Sumanth watson and Address Organization Details Recorded Time Tdap 12/26/2015 [facility] 02:31:10 COVID-19, mRNA, LNP-S, PF, 100 mcg/0.5mL dose or 50 mcg/0.25mL dose 03/06/2021 completed ROBERTA YANG MD Attn: Accounting [address], [place], [address], [place] [facility] 05/04/2022 12:37:40 COVID-19, mRNA, LNP-S, PF, 100 mcg/0.5mL dose or 50 mcg/0.25mL dose 02/05/2021 completed ROBERTA YANG MD Attn: Accounting,[address] [facility], [place], [address], [place] [facility] 05/04/2022 12:37:40 MMR 11/02/2022 completed Jaylin Tapia RN [facility], [place] - [facility] 11/02/2022 10:02:28 Past Encounters Encounter ID Performer Location Encounter Start Date Encounter Closed Date Diagnosis/Indication Diagnosis SNOMED-CT Code Diagnosis ICD10 Code Diagnosis Note [id number] Zulma Fontanez [facility] ([facility]) [address] [place] [address] 11/07/2014 09:51:21 11/08/2014 12:44:25 Uses contraception [id number] Alise [facility] ([facility]) [address] [place] [address] 08/26/2015 14:13:59 08/27/2015 08:57:07 [id number] Z33.1 Vaginal discharge 656012 006 N89.8 Nausea 130537429 R11.0 [id number] Alise Moya Womenshayla ([facility]) [address] [place] [address] 09/24/2015 10:51:48 09/29/2015 01:41:05 [id number] Z33.1 Second tri mester 87286857 Z34.92 [id number] [facility] ([facility]) [address] [place] [address] 10/24/2015 10:28:00 10/25/2015 19:26:14 Gestation period, 19 weeks [id number] Z3A.19 [id number] Alise Moya Womenshayla ([facility]) [address] [place] [address] 11/20/2015 11:11:07 11/26/2015 13:48:19 Gestation period, 22 weeks [id number] Z3A.22 [id number] Alise Moya Womenshayla ([facility]) [address] [place] [address] 12/18/2015 09:19:55 12/18/2015 11:14:01 Normal [id number] Z34.82 [id number] Alise Moya Womenshayla ([facility]) [address] [facility] [place] [place] [address] 12/26/2015 11:44:35 12/26/2015 19:37:01 Gestation period, 28 weeks [id number] Z3A.28 [id number] Alise Moya Womenshayla ([facility]) 2 [facility] [place] [place] [address] 01/09/2016 15:29:26 01/11/2016 18:58:10 Normal [id number] Z34.82 [id number] Alise Bhat ([facility]) [address] [facility] [place] [place] [address] 01/23/2016 09:15:45 01/23/2016 09:36:57 Gestation period, 32 weeks [id number] Z3A.32 [id number] Alise Bhat ([facility]) 2 [facility] [place] [place] [address] 02/06/2016 09:11:37 02/07/2016 12:17:18 Third trimester [id number] Z3A.34 [id number] Alise Bhat ([facility]) 2 [facility] [place] [place] [address] 02/13/2016 15:09:54 02/13/2016 15:50:01 Normal [id number] Z34.83 support 40 [id number] Z39.1 [id number] Alise Bhat ([facility]) 2 [facility] [place] [place] [address] 02/20/2016 11:45:37 02/20/2016 20:34:16 Normal [id number] Z34.83 [id number] Alise Bhat ([facility]) 2 [facility] [place] [place] [address] 02/27/2016 11:45:51 03/05/2016 19:28:55 Normal [id number] Z34.83 [id number] Alise Bhat ([facility]) 2 [facility] [place] [place] [address] 03/05/2016 09:51:10 03/05/2016 20:15:37 Normal [id number] Z34.83 [id number] Alise Bhat ([facility]) 2 [facility] [place] [place] [address] 03/12/2016 10:29:52 03/13/2016 00:30:51 Normal [id number] Z34.83 [id number] Alise Bhta ([facility]) 2 [facility] [place] [place] [address] 03/15/2016 15:27:04 03/15/2016 18:29:47 Normal [id number] Z34.83 [id number] MD Veda Mercado ([facility]) 2 [facility] [place] [place] [address] 04/02/2016 10:43:54 04/03/2016 21:01:50 care [id number] Z39.2 [id number] Shaniqua Bhat ([facility]) 2 [facility] [place] [place] [address] 05/04/2016 14:17:28 05/28/2016 12:13:43 care [id number] Z39.2 Venereal d isease screening 808018392 Z11.3 [id number] MD Veda Mercado ([facility]) 2 [facility] [place] [place] [address] 05/24/2016 10:31:53 05/24/2016 11:17:16 Contraception care 139178063 Z30.40 [id number] MD Veda Mercado ([facility]) 2 [facility] [place] [place] [address] 06/23/2016 10:16:40 06/23/2016 10:41:40 Contraception care management [id number] Z30.9 [id number] SHARON Tang ([facility] 205) 2 [facility] [place] [place] [address] 09/14/2016 11:43:51 09/15/2016 09:04:36 History of radiofrequency ablation operation for arrhythmia 503419673 Z98.890 Will continue care with cardiology and cardiac surgeon-wi ll return for any new or worsening of s/s [id number] MD [facility] ([facility]) 2 [facility] [place] [address] 03/11/2017 11:30:40 03/11/2017 12:07:03 Contraception care [id number] Z30.40 [id number] MD Veda Mercado 14 OB 4 [facility] [place] [place] [address] 04/13/2018 10:01:27 04/13/2018 10:45:59 Contraception care 270433825 Z30.40 Nexplanon device was inserted without any complicati ons. Patient was instructed to use a back up method of control for 2 weeks. [id number] MD Veda Mercado 14 OB 4 [facility] [place] [address] 05/17/2018 10:08:17 05/17/2018 10:57:19 Contraception care management 747568349 Z30.9 - Patient was reassured. Side effect profile of the Nexplanon device was reviewed with the patient. [id number] GABRIELA Marks- Veda 14 OB 4 [facility] [place] [address] 11/03/2020 13:47:56 11/04/2020 13:34:48 Removal of subcutaneous contraceptive 937577578 Z30.46 Nexplanon removed without issue. Pt verbalizes that fertility will resume and if trying to become , she needs to begin vits now. Pt verbalized understand ing. Pt will follow up as needed for annual, sooner if needed or if pt would like new form of control. [id number] MD Veda DAY 14 IM 4 [facility] [place] [place] [address] 03/26/2021 11:50:57 03/27/2021 06:20:27 Body mass index 30+ - obesity 964484231 Z68.33 - Encouraged increasing aerobic exercise to at least 150min per week, and discussed the use of MyPlate method with emphasis on increasing fruit and vegetable consumptio n and limiting processed foods and added sugars Cardiac arrhythmia 37205 7007 I49.9 History of cardiac arrhythmia w/ PVCs s/p ablation in 2017sympto matic again for the past 6 months with physical exertionEK G in office demonstrat saturnino layton with possible sinus arrhythmia will obtain bloodwork to rule out other causescard iology referral placed for possible need of addition interventi ons/medica tions History of radiofrequency ablation operation for arrhythmia 515142974 Z98.890 done at [facility] on 11/04/2016 [id number] MD Veda DAY 14 IM 4 [facility] [place] [address] 04/20/2021 10:50:42 04/21/2021 17:11:24 Contraception care management 623423554 Z30.9 - Discussed Hormonal vs copper IUD vs nexplanon, provided reading material- Patient will consider options and call with to schedule appt for placement, will inform choice during scheduling to order appropriat e device- Pap to be performed prior to insertion of IUD at follow up Intermitte nt palpitations 716413940 R00.2 - work up so far: CBC, BMP, Mg, TSH, Iron/TIBC/ Ferritin all normal- Given history of ablation, referred to cardiology for further work up, appt scheduled May 13- Will refer to counseling to develop coping techniques when having anxiety that triggers palpitatio ns [id number] MD Veda DAY 14 IM 4 [facility] [place] [place] [address] 06/04/2021 09:54:25 06/05/2021 00:21:46 Insertion of subcutaneous contraceptive 169567831 Z30.9 patient consented, nexplanon inserted without issueadvis ed to use a barrier method or refrain from unprotecte d sex for the next 7 days due to still being at risk of (not within first 7 days of period)in office UPT negative Screening for malignant neoplasm of cervix 645452896 Z12.4 Pap done, yeast infection noted on pap Candidiasis of vagina 72 342067 B37.3 yeast infection noted on pap, patient denies itching or burning, but often gets yeast infection after preriod, interested in getting treated. [id number] DK Ruvalcaba 14 IM 4 [facility] [place] [place] [address] 12/16/2021 09:12:33 12/17/2021 10:43:01 COVID-19 501170715 U07.1 -To quarantine .-Increase fluid intake-Can use tylenol or ibuprofen for fever or pain-Can continue zofran for nausea.-To alert clinic if any new or wosening symptoms. [id number] MD Veda DAY 14 IM 4 [facility] [place] [place] [address] 03/22/2022 10:16:26 03/23/2022 13:43:53 Removal of subcutaneous contraceptive 938108633 Z30.46 Nexplanon too deep, unsuccessf ul removal in office, will refer to OBGYN for removal, appreciate assistance [id number] MD Veda Warner 14 OB 4 [facility] [place] [address] 03/31/2022 11:20:34 04/01/2022 10:48:49 Surveillance of subcutaneous contraceptive implant 682804042 Z30.46 --Unable to remove Nexplanon, Implanted too deep [id number] MD Veda DAY 14 [address] [facility] [place] [address] 09/14/2022 10:50:20 09/15/2022 12:37:41 Contraception care management 863209103 Z30.9 - Risks/bene fits/alter natives of Nexplanon. Mirena IUD, paragard IUD, Depo provera, Nuvaring, patch, combined OCP and progestero ne OCP were discussed with the patient.- Risks of hormonal control reviewed, menstrual bleeding or no bleeding, weight changes, and mood changes. Risks of bone loss with Depo Provera also reviewed. All questions answered. Pt understand s & accepts risks. Instructio ns/warning signs given. Safe sex counseling done.- Pt continues to desire depo, Depo-prove ra rx provided Body mass index 30+ - obesity 798616769 Z68.34 - Encouraged increasing aerobic exercise to at least 150min per week, and discussed the use of MyPlate method with emphasis on increasing fruit and vegetable consumptio n and limiting processed foods and added sugars Immunization due 5518380 08 Z28.39 counselled on Moderna Bivalent booster, will think about it and come back when with nurse visit to get it done [id number] CODI Nieves 14 IM 4 [facility] [place] [place] [address] 09/20/2022 10:24:16 09/23/2022 10:16:05 Contraception care management 829227511 Z30.9 - Discussed Hormonal vs copper IUD vs nexplanon, provided reading material- Patient will consider options and call with to schedule appt for placement, will inform choice during scheduling to order appropriat e device [id number] MD Veda DAY 14 IM 4 [facility] [place] [place] [address] 10/26/2022 09:29:54 11/05/2022 10:35:53 Obesity 808529969 E66.9 History an d physical examination, pre-employment 162153560 Z02.1 Work physical form completed and scanned into chart,form requesting proof of MMR vaccinatio n or immunity, no access to vaccine record, check MMR titres, vaccinate accordingl y Tuberculos is screening 915652354 Z11.1 PPD not available in clinic at this time, will check Quantifero n [id number] CODI Nieves 14 4 [facility] [place] [address] 11/02/2022 09:33:25 11/23/2022 08:47:44 Immunization due 908605127 Z28.39 counselled on Moderna Bivalent booster, will think about it and come back when with nurse visit to get it done Contracept ion care management 719556483 Z30.9 - Discussed Hormonal vs copper IUD vs nexplanon, provided reading material- Patient will consider options and call with to schedule appt for placement, will inform choice during scheduling to order appropriat e device [id number] CODI Nieves 14 IM 4 [facility] [place] [address] 12/14/2022 09:20:04 12/22/2022 10:47:53 Contraception care management 529790083 Z30.9 - Discussed Hormonal vs copper IUD vs nexplanon, provided reading material- Patient will consider options and call with to schedule appt for placement, will inform choice during scheduling to order appropriat e device [id number] EB Cedillo 14 IM 4 [facility] [place] [place] [address] 03/04/2023 09:16:47 03/07/2023 13:02:41 Contraception care management 718740430 Z30.9 - Discussed Hormonal vs copper IUD vs nexplanon, provided reading material- Patient will consider options and call with to schedule appt for placement, will inform choice during scheduling to order appropriat e device [id number] EB Reagan 14 IM 4 [facility] [place] [address] 06/03/2023 10:20:36 06/09/2023 10:19:45 Depot contraceptive repeated 514383441 Z92.0 [id number] MD Veda DAY 14 IM 4 [facility] [place] [place] [address] 06/08/2023 09:42:44 06/14/2023 10:42:50 Tuberculosis screening 777687183 Z11.1 As above Body mass index 30+ - obesity 494636341 Z68.34 ? Patient has been working diligently on losing weight, however is frustrated that she has not lost any weight despite increasing her physical activity and monitoring her diet- Encouraged increasing aerobic exercise to at least 150min per week, and discussed the use of MyPlate method with emphasis on increasing fruit and vegetable consumptio n and limiting processed foods and added sugars? Referral to dietitian placed ? Check hemoglobin A1c, TSH to monitor for other causes ? Start Victoza to assist with weight loss, start at 0.6 mg daily x1 week then increase by 0.6 mg every week up to 1.8 mg daily ? RTC in 4 to 6 weeks to monitor response to medication and diet Malaise and fatigue 9093 68297 R53.83 ? Unclear etiology of generalize d fatigue, possibly related to sleep hygiene VS endocrine causes VS hematologi c causes VS mood ? Check CBC/TSH to rule out other causes ? Advised to continue monitoring symptoms and to discuss at follow-up History an d physical examination, pre-employment 385853393 Z02.1 Work physical form completed and scanned into chart,Vacc ine record check, patient up-to-date on required vaccines for work Form does require PPD, PPD injected today, RTC in 48 hours for interpreta tion [id number] MD Veda DAY 14 IM [address] [facility] [place] [place] [address] 2023 08:56:33 07/11/2023 13:39:24 Obesity 752280109 E66.9 Patient continues to be on Victoza, has lost 7 lbs since last visit (226 lbs on 05/2023 to 219 lbs today)pt did escalate dose too quickly from 1.2 mg to 3.0 mg daily right away, at that time she experience d significan t nausea and constipati onAdvised patient to de-escalat e back down to 1.8 mg daily for 1 to 2 weeks, then increasing dose to 2.4 mg daily for 1 to 2 weeksHas PRN Zofran ODT for nauseaRTC in 1 month for follow-up Constipation 31130213 K5 9.00 Advised patient to increase fiber intake, consider using OTC fiber supplement s like Metamucil or stool softener like MiraLAX. [id number] MD Veda DAY 14 IM [address] [facility] [place] [place] [address] 10/11/2023 16:24:53 11/03/2023 10:40:13 Obesity 848378375 E66.9 Continue on Victoza 1.8 mg daily Reducible umbilical hernia 813233600 K42.9 Small reducible umbilical hernia noted on examNo evidence of incarcerat ion at this time Will obtain abdominal wall ultrasound to further evaluate General surgery referral placed [id number] MD Veda DAY 14 IM 4 [facility] [place] [place] [address] 12/22/2023 15:31:11 12/26/2023 14:08:02 Obesity 913014096 E66.9 History of repair of umbilical hernia 746342342 Z98.890 open umbical hernia repair on 12/13/[address] Maday hester restrcitio ns per general surgeryavo id straining or heavy lifiting Constipation 47335647 K5 9.04 Advised patient to increase fiber intake, consider using OTC fiber supplement s like Metamucil or stool softener like MiraLAX. Health Concerns Section Related Observation LastModified by Organization Detai ls LastModified Time None Recorded Concern Status LastModified by Organization Details LastModified Time None Recorded Advance Directives Directive N: Payers Encounter Date Sequence Insurance Name Policy Number Policy Bermeo Covered Member ID Bermeo Member ID Guarantor Name 06/03/2023 1 [facility] ON OR AFTER 01/22/21 (MEDICAID REPLACEMENT - HMO) Barbara Velasco [id number] Barbara Velasco 06/08/2023 1 [facility] ON OR AFTER 01/22/21 (MEDICAID REPLACEMENT - HMO) Barbara Velasco [id number] Barbara Velasco 2023 1 [facility] ON OR AFTER 01/22/21 (MEDICAID REPLACEMENT - HMO) Barbara Velasco [id number] Barbara Velasco 10/11/2023 1 [facility] ON OR AFTER 01/22/21 (MEDICAID REPLACEMENT - HMO) Barbara Velasco [id number] Barbara Velasco 12/22/2023 1 [facility] ON OR AFTER 01/22/21 (MEDICAID REPLACEMENT - HMO) Barbara Vealsco [id number] Barbara Velasco Notes Date Note Type Note Provider Name and Address Organization Details Recorded Time 06/08/2023 text/html Barbara is a 32 yo female who presents for work physical, starting a new job.needs PPD for work form She received her 4th depo shot on 06/03/23 - no periods since starting the shots, having some fatigue but tolerating well otherwise. not sexually active currently She gets ocular migraines a couple times a month - visual changes self-resolve in 20-30 minutes and usually doesn't take medication.Also getting more headaches recently - relief with Excedrin She also is concerned about weight gain. She states she cannot get her weight down since having second daughter. She has would like to lose about 60 lbs. She has tried cutting out junk food and incorporating more fruits/veg and does workout videos on [employer] and walks 4x per week for the past few months. Not working out the past couple weeks though. She states she has always been overweight since she was younger and many of her family members struggle with their weight as well. no concerns with mood. denies any dizziness, blurred vision, SOB, CP, abdominal pain, N/V, or numbness/tingling ROBERTA YANG MD Attn: Accounting,[address] [facility], [place], [address], [facility] 06/13/2023 11:19:20 2023 text/html Barbara Velasco is a 33 year old female presenting to clinic for a follow-up since starting Victoza.She was started on Victoza 4 weeks ago. She reports that she was initially on 0.6mg for one week, increased to 1.2mg the following week, and has been on 3.0mg for the past two weeks. She reports that she was asymptomatic until she upped her dosage to 3.0mg when she states she has been constipated. She states that she had a bowel movement yesterday, which was normal color and consistency, but has not had one before that for 7 days. She states that she typically is constipated at baseline, however. She reports she had to strain and she vomited twice, described as stomach acid, as well. She has been nauseous intermittently since upping her dose but takes Zofran as needed or drinks water to alleviate her nausea. She has had a decreased appetite and has lost 7 pounds since beginning Victoza. She also reports eating more healthy than before beginning Victoza.She reports no hematemesis, diarrhea, bloody stools, melena, headache, fatigue, chills, dyspnea, chest pain, abdominal pain, dysuria, increased urinary frequency/urgency, BLE swelling, ROBERTA YANG MD Attn: Accounting,[address] [place], [address], [facility] 07/10/2023 18:36:00 10/11/2023 text/html 33-year-old buffy le here to discuss concern about a potential umbilical hernia. 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 Berg appt on December 26 with surgeonpain free today, felt slight discomfort this morning, tight and itchytaking occasional percocet, which helped, now managing with tylenol still constipated, 1-2 BMs per week denies any LOMBARDO, dizziness, blurred vision, CP, SOB, palpitations, abdominal pain, N/V, or numbness/tingling ROBERTA YANG MD Attn: Accounting,[address] [facility], [place], [address], [facility] 12/24/2023 01:19:10 OBGyn Episode Ob Episode Information Episode Created Date Number of Fetuses Patient Bloodtype Patient rh Status Prepregnancy Weight lbs Domestic Partner Domestic Partner Phone Father Name Resort Housekeeper Status 07/29/19 16 1 CLOSED Fetus Data First Name Last Name Admitted to NICU Weight (g) Sex Living Outcome Pediatric Complications Fetus ID Race Codes Race Delivery Type [phone] F [id number] Vaginal Tomas Calculation Initial Tomas Date Initial Exam Date Initial Exam Provider Initial Ultrasound Date Last Menstrual Period Date Ultra Sound Weeks Gestation 0 Eighteen To Twenty Week Tomas Update Ultra Sound Date Fundal Height At Umbil Quickening Date Ultra Sound Latest Weeks Gestation Final Tomas Confirmed By Final Tomas Confirmed Date Final Tomas Date Ultra Sound Latest Days Gestation 0 0 Menstrual History Last Menstrual Date Menses Monthly On Bcp Conception Prior Menses Frequency Hcg Plus Date Menarche Onset Age Delivery Information Delivery Date Delivery Type Labor Anesthesia Weeks Gestation Incision Type Labor Labor Length Hrs Delivered By Post Complications Tubal Sterilization Discharge Date Comments 1 Regional- idural 40 HAD TO GET INDUCE Discharge Information Feeding Method Contraceptive Method Maternal HG B and HCT Levels Ob Episode Information Episode Created Date Number of Fetuses Patient Bloodtype Patient rh Status Prepregnancy Weight lbs Domestic Partner Domestic Partner Phone Father Name Resort Housekeeper Status 07/29/19 16 1 O Negative 184 PETER SAM CLOSED Fetus Data First Name Last Name Admitted to NICU Weight (g) Sex Living Outcome Pediatric Complications Fetus ID Race Codes Race Delivery Type Portia Velasco false 3628.73 6 F true Full Term [id number] White Vaginal Problems Problem Notes Problem Name Start Date End Date Resolution Snomed Code Not e -induced hypertension 60131744 LAST Vaginal discharge [id number] Nausea [id number] Bacterial vaginosis [id number] Gestation period, 28 weeks [id number] [id number] Gestation period, 32 weeks 770 7000 Tomas Calculation Initial Tomas Date Initial Exam Date Initial Exam Provider Initial Ultrasound Date Last Menstrual Period Date Ultra Sound Weeks Gestation 03/19/2016 07/29/2015 okolade 08/13/2015 06/13/2015 8 Eighteen To Twenty Week Tomas Update Ultra Sound Date Fundal Height At Umbil Quickening Date Ultra Sound Latest Weeks Gestation Final Tomas Confirmed By Final Tomas Confirmed Date Final Tomas Date Ultra Sound Latest Days Gestation 11/05/19 16 20 03/19/20 16 4 Pre- Flowsheet Flowsheet Date 08/26/2015 Prince Score Blood Edema Fundus Height Fundus Units Glucose Ketones Leukocytes Nitrite Labor Signs Protein Cervic Dilation Cervic Effacement Cervic Station Type Weight in lbs Pre/Post Dialysis Refused 181.108493733665 BP Diastolic BP Location Tested BP Systolic BP Type 70 120 sitting Fetus Heart Rate Present Fetus Movement Comments Patient was recently admitte d for pneumonia. Patient feels better but complains of nausea and vomiting. Rx for Diclegis sent to pharmacy. Patient was instructed to continue vitamins. Flowsheet Date 09/24/2015 Prince Score Blood Edema Fundus Height Fundus Units Glucose Ketones Leukocytes Nitrite Labor Signs Protein Cervic Dilation Cervic Effacement Cervic Station neg none none trace neg Type Weight in lbs Pre/Post Dialysis Refused 183.018056874118 BP Diastolic BP Location Tested BP Systolic BP Type 60 118 sitting Fetus Heart Rate Present A 154 Fetus Movement Comments Patient is doing well. Patie nt offers no complaints. Hyperemesis seems to be resolving. Schedule for anatomy scan and quad screen next visit. Flowsheet Date 10/24/2015 Prince Score Blood Edema Fundus Height Fundus Units Glucose Ketones Leukocytes Nitrite Labor Signs Protein Cervic Dilation Cervic Effacement Cervic Station 20 Type Weight in lbs Pre/Post Dialysis Refused 184.938175336692 BP Diastolic BP Location Tested BP Systolic BP Type 65 120 sitting 65 120 Fetus Heart Rate Present A 172 Fetus Movement Comments Patient offers no complaints today. Patient endorses some nausea and vomiting. Patient also sharp lower abdominal pain several weeks ago. Patient denies vaginal bleeding. Patient is yet to feel the baby move. Quad screen and anatomy scan today. precautions were given. Will refer to MFM for evaluation of PVCs. precautions were given. Flowsheet Date 11/20/2015 Prince Score Blood Edema Fundus Height Fundus Units Glucose Ketones Leukocytes Nitrite Labor Signs Protein Cervic Dilation Cervic Effacement Cervic Station 23 Type Weight in lbs Pre/Post Dialysis Refused 189.915715505075 BP Diastolic BP Location Tested BP Systolic BP Type 52 110 sitting Fetus Heart Rate Present A 150. Fetus Movement A Yes Comments Patient reports s/p MFM Cons ult for PVC. Patient is yet to do echocardiogram. Report from consult is not available for review. Patient c/o chest pain on exertion. Recommended that patient be off work. Work release letter was given. Patient denies vaginal bleeding or leakage of fluid. Reports good movements. Flowsheet Date 12/18/2015 Prince Score Blood Edema Fundus Height Fundus Units Glucose Ketones Leukocytes Nitrite Labor Signs Protein Cervic Dilation Cervic Effacement Cervic Station 25 Type Weight in lbs Pre/Post Dialysis Refused 194.460618620193 BP Diastolic BP Location Tested BP Systolic BP Type 70 122 Fetus Heart Rate Present A 147 Fetus Movement A Yes Comments Patient is s/p MFM consult f or PVCs. Recommendations were noted with thanks. Patient c/o lower abdominal pain worse with movement. Patient denies contractions vaginal bleeding or leakage of fluid. Patient reports good movements. CBC, GCT today. Rhogam and TDAP at 28 weeks. Follow up with Cardiology and MFM appointments. Flowsheet Date 12/26/2015 Prince Score Blood Edema Fundus Height Fundus Units Glucose Ketones Leukocytes Nitrite Labor Signs Protein Cervic Dilation Cervic Effacement Cervic Station 28 Type Weight in lbs Pre/Post Dialysis Refused 193.11672713171 BP Diastolic BP Location Tested BP Systolic BP Type 64 130 Fetus Heart Rate Present A 128 Fetus Movement A Yes Comments Patient offers no complaints . Denies abdominal pain or contractions. Denies vaginal bleeding or leakage of fluid. Reports good movements. CBC, TDAP and Rhogam. labor precautions were given. Flowsheet Date 01/09/2016 Prince Score Blood Edema Fundus Height Fundus Units Glucose Ketones Leukocytes Nitrite Labor Signs Protein Cervic Dilation Cervic Effacement Cervic Station neg none 29 none negative 1+ Type Weight in lbs Pre/Post Dialysis Refused 197.335027113898 BP Diastolic BP Location Tested BP Systolic BP Type 78 112 sitting Fetus Heart Rate Present A 148 Fetus Movement A Yes Comments Patient offers no complaints . Denies abdominal pain or contractions. Denies vaginal bleeding or leakage of fluid. Reports good movements. Flowsheet Date 01/23/2016 Prince Score Blood Edema Fundus Height Fundus Units Glucose Ketones Leukocytes Nitrite Labor Signs Protein Cervic Dilation Cervic Effacement Cervic Station 31 cm none Type Weight in lbs Pre/Post Dialysis Refused 200.058716527519 BP Diastolic BP Location Tested BP Systolic BP Type 62 110 sitting Fetus Heart Rate Present A 160 Present Fetus Movement A Yes Comments Patient has no complaints at this time. Signs of labor reviewed with patient and importance of hydration. Pt has positive movements. Flowsheet Date 02/06/2016 Prince Score Blood Edema Fundus Height Fundus Units Glucose Ketones Leukocytes Nitrite Labor Signs Protein Cervic Dilation Cervic Effacement Cervic Station trace 33 none negative trace Type Weight in lbs Pre/Post Dialysis Refused BP Diastolic BP Location Tested BP Systolic BP Type Fetus Heart Rate Present A 145 Fetus Movement A Yes Comments Patient offers no complaints . Denies abdominal pain or contractions. Denies vaginal bleeding or leakage of fluid. GBS culture next visit. Patient has been cleared by the child care worker to deliver at [facility] given concerns about PVC's. Flowsheet Date 02/13/2016 Prince Score Blood Edema Fundus Height Fundus Units Glucose Ketones Leukocytes Nitrite Labor Signs Protein Cervic Dilation Cervic Effacement Cervic Station neg 36 none small 1+ Type Weight in lbs Pre/Post Dialysis Refused 205.408453728907 BP Diastolic BP Location Tested BP Systolic BP Type 88 128 Fetus Heart Rate Present A 150 Fetus Movement A Yes Comments Patient offers no complaints . Patient denies abdominal pain or contractions, denies vaginal bleeding or leakage of fluid. Reports good movements. labor precautions were given. GBS culture was sent. Flowsheet Date 02/20/2016 Prince Score Blood Edema Fundus Height Fundus Units Glucose Ketones Leukocytes Nitrite Labor Signs Protein Cervic Dilation Cervic Effacement Cervic Station neg 37 none negative trace 0cm 50% -3 Type Weight in lbs Pre/Post Dialysis Refused 206.399828348850 BP Diastolic BP Location Tested BP Systolic BP Type 68 112 sitting Fetus Heart Rate Present A 150 Fetus Movement A Yes Comments Patient denies abdominal basilio n or contractions, denies vaginal bleeding or leakage of fluid. Reports good movements. labor precautions were given. Flowsheet Date 02/27/2016 Prince Score Blood Edema Fundus Height Fundus Units Glucose Ketones Leukocytes Nitrite Labor Signs Protein Cervic Dilation Cervic Effacement Cervic Station neg none 34 none negative trace 1cm 50% -3 Type Weight in lbs Pre/Post Dialysis Refused 210.476491354228 BP Diastolic BP Location Tested BP Systolic BP Type 74 104 sitting Fetus Heart Rate Present A 159 Fetus Movement A Yes Comments Patient reports some contrac tions. Denies vaginal bleeding or leakage of fluid. Reports good movements. Labor precautions were given. Flowsheet Date 03/05/2016 Prince Score Blood Edema Fundus Height Fundus Units Glucose Ketones Leukocytes Nitrite Labor Signs Protein Cervic Dilation Cervic Effacement Cervic Station neg 40 none negative neg 2cm 50% - 3 Type Weight in lbs Pre/Post Dialysis Refused 210.900736488674 210.994120802755 BP Diastolic BP Location Tested BP Systolic BP Type 80 120 sitting 80 120 sitting Fetus Heart Rate Present A 155 Fetus Movement A Yes Comments Patient refers occasional co ntractions. Denies vaginal bleeding or leakage of fluid. Reports good movements. Will schedule for IOL at 40 weeks. Flowsheet Date 03/12/2016 Prince Score Blood Edema Fundus Height Fundus Units Glucose Ketones Leukocytes Nitrite Labor Signs Protein Cervic Dilation Cervic Effacement Cervic Station 40 1cm 50% -3 Type Weight in lbs Pre/Post Dialysis Refused 217.641593892761 BP Diastolic BP Location Tested BP Systolic BP Type 92 138 sitting Fetus Heart Rate Present A 150 Fetus Movement A Yes Comments Patient reports chest pain t hat resolved. BP today is elevated. Patient reports headaches last night. Denies blurring of vision and epigastric pain.Patient is scheduled for IOL at [facility] in one week. Flowsheet Date 03/15/2016 Prince Score Blood Edema Fundus Height Fundus Units Glucose Ketones Leukocytes Nitrite Labor Signs Protein Cervic Dilation Cervic Effacement Cervic Station neg none none negative neg 2cm 50% - 3 Type Weight in lbs Pre/Post Dialysis Refused 220.533464679210 BP Diastolic BP Location Tested BP Systolic BP Type 60 120 sitting Fetus Heart Rate Present A 136 Fetus Movement A Yes Comments Patient reports irregular co ntractions. Denies vaginal bleeding, leakage of fluid. Reports good movements. Patient is scheduled for IOL on 03/19/2016. Labor precautions were given. Menstrual History Last Menstrual Date Menses Monthly On Bcp Conception Prior Menses Frequency Hcg Plus Date Menarche Onset Age 1106/13/2015 true false 05/13/2015 5 07/29/19 1 6 Genetic Screening And Infection History Question Response Note Patient's Age Will Be 35 Years Or Older At Estim ated Date of Delivery false Thalassemia (Syrian, Belizean, Mediterranean, Or Background): MCV < 80 false Neural Tube Defect (Meningomyelocele, Spina Bifi da, Or Anencephaly) false Congenital Heart Defect false Down Syndrome false Miguel-Sachs (eg, Nondenominational, Cajun, Hungarian-[place]) f alse Gian Disease false Sickle Cell Disease Or Trait () false Hemophilia Or Other Blood Disorders false Muscular Dystrophy false Cystic Fibrosis false Seneca's Chorea false Mental Retardation/Autism false If Yes, Was Person Tested For Fragile X? false Other Inherited Genetic Or Chromosomal Disorder false Maternal Metabolic Disorder (eg, Type 1 Diabetes , PKU) false Patient Or Baby's Father Had A Child With Defects Not Listed Above false Recurrent Loss, Or A Stillbirth false Medications (including Suppl ements, Vitamins, Herbs, OTC Drugs), Illicit/Recreational Drugs, Alcohol false If Yes, Agent(s) And Strength/Dosage false Any Other Genetic History false Live With Someone With TB Or Exposed To TB false Patient Or Partner Has History Of Genital Herpes false Rash Or Viral Illness Since Last Menstrual Perio d false History Of STD, Gonorrhea, Chlamydia, HPV, Syphi lis false Other Infection History false Delivery Information Delivery Date Delivery Type Labor Anesthesia Weeks Gestation Incision Type Labor Labor Length Hrs Delivered By Post Complications Tubal Sterilization Discharge Date Comments 6 Induce d Regional-Ep idural [address] Hoffman 03/21/2016 Discharge Information Feeding Method Contraceptive Method Maternal HG B and HCT Levels Breast
== END 2024-08-11 10:05 | disposition home or self-care (01) ==
PROVIDERS: Emergency Provider Nurse Practitioner Family
DX: K04.7 Periapical abscess without sinus (principal)
CPT/HCPCS: 99213; G0463

== ENCOUNTER 2024-09-08 14:54 | Emergency (ER) | payer OTHER, SELFPAY ==
--- OUTSIDE RECORDS SUMMARY | 2024-09-08 14:56 | XMS_ITS | Referral Summary ---
Author Organization [facility] [employer] Address [address] [place] [address] Care Team Providers Care Senior Client Advisor Name Role Phone Unavailable Primary Care Provider Unavailabl e Source Comments [facility] [employer] [facility],non-owned Affiliates and Associated Physician Practices is amultiple site organization consisting of ambulatory clinics and hospital sitesin [place], [place], [place] and [place]. This disclosure is being madepursuant to the Care Everywhere program and may not contain all information available regarding this patient. Last updated 18.[facility] Allergies No known active allergies Medications * [...] file Gender Identity Female 08/18/2020 2:38 PM VEGETABLE GROWER Sexual Orientation Not on file Last Filed Vital Signs Vital Sign Reading Time Taken Comments Blood Pressure 124/80 08/20/2020 4:00 PM VEGETABLE GROWER Pulse 74 08/20/2020 4:00 PM VEGETABLE GROWER Temperature 37.2 C (98.9 F) 08/20/2020 4:00 PM VEGETABLE GROWER Respiratory Rate 16 08/20/2020 4:00 PM VEGETABLE GROWER Oxygen Saturation 98% 08/20/2020 4:00 PM VEGETABLE GROWER Inhaled Oxygen Concentration - - Weight 95.3 kg (210 lb) 08/20/2020 4:00 PM VEGETABLE GROWER Height 172.7 cm (5' 8 ) 08/20/2020 4:00 PM VEGETABLE GROWER Body Mass Index 31.93 08/20/2020 4:00 PM VEGETABLE GROWER Plan of Treatment Not on file Administered Medications
--- OUTSIDE RECORDS SUMMARY | 2024-09-08 14:56 | XMS_ITS | Referral Summary ---
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 Gender Identity Not on file Sexual Orientation Not on file Last Filed Vital Signs Vital Sign Reading Time Taken Comments Blood Pressure 122/81 12/27/2023 1:23 PM CDT Pulse 59 12/27/2023 1:23 PM CDT Temperature 36.4 C (97.5 F) 12/27/2023 1:23 PM CDT Respiratory Rate 18 12/13/2023 11:1 4 AM CDT Oxygen Saturation 97% 12/27/2023 1:23 PM CDT Inhaled Oxygen Concentration - - Weight 103.1 kg (227 lb 6.4 oz) 12/27/2023 1:23 PM CDT Height 172.7 cm (5' 8 ) 12/27/2023 1:23 PM CDT Body Mass Index 34.58 12/27/2023 1:23 PM CDT Plan of Treatment Not on file Insurance [facility] Care Teams Sports Photographer Relationship Specialty Start Date End Date Roberta Leigh MD [address] [place] [address] [place] [address] PCP - General Family Medicine 05/13/21
--- OUTSIDE RECORDS SUMMARY | 2024-09-08 14:56 | XMS_ITS | Clinical Summary ---
Author Organization [facility] [employer] Address [address] [place] [address] Care Team Providers Care Lead Ingot Molder Name Role Phone Unavailable Primary Care Provider Unavailabl e Source Comments [facility],non-owned Affiliates and Associated Physician Practices is amultiple site organization consisting of ambulatory clinics and hospital sitesin [place], [place], [place] and [place]. This disclosure is being madepursuant to the Care Everywhere program and may not contain all information available regarding this patient. Last updated 18.[facility] Allergies No known active allergies Medications * [...] file Gender Identity Female 08/18/2020 2:38 PM CLIENT REPORTING ASSOCIATE Sexual Orientation Not on file Last Filed Vital Signs Vital Sign Reading Time Taken Comments Blood Pressure 124/80 08/20/2020 4:00 PM CLIENT REPORTING ASSOCIATE Pulse 74 08/20/2020 4:00 PM CLIENT REPORTING ASSOCIATE Temperature 37.2 C (98.9 F) 08/20/2020 4:00 PM CLIENT REPORTING ASSOCIATE Respiratory Rate 16 08/20/2020 4:00 PM CLIENT REPORTING ASSOCIATE Oxygen Saturation 98% 08/20/2020 4:00 PM CLIENT REPORTING ASSOCIATE Inhaled Oxygen Concentration - - Weight 95.3 kg (210 lb) 08/20/2020 4:00 PM CLIENT REPORTING ASSOCIATE Height 172.7 cm (5' 8 ) 08/20/2020 4:00 PM CLIENT REPORTING ASSOCIATE Body Mass Index 31.93 08/20/2020 4:00 PM CLIENT REPORTING ASSOCIATE Plan of Treatment Health Maintenance Due Date [...]
--- OUTSIDE RECORDS SUMMARY | 2024-09-08 14:56 | XMS_ITS | Clinical Summary ---
Author Organization [facility] Address [address] [place] [phone] Phone Care Team Providers Care Cruise Counselor Name Role Phone Roberta Leigh MD Primary Care Provider [phone] Allergies Active Allergy Reactions Criticality Noted Date [...] (04/14/2022): Added automatically from request for surgery [id number] Resolved Problems Problem Noted Date Diagnosed Date [...] on file Legal Sex Female 3:18 AM SAP ARIBA CONSULTANT Gender Identity Not on file Sexual Orientation [...] Regular Well Visit/Exam 18-64 2008 Covid-19 Vaccine (2023-2 5 season) 2024 03/06/2021, 02/05/2021 Influenza Vaccine (#1) 2024 04/27/2015 DTaP/Tdap/Td Vaccine (2 - Td or Tdap) 12/25/2025 12/26/2015 HPV Vaccines Aged Out No longer eligi ble based on patient's age to complete this topic Pneumococcal vaccine <65 Aged Out No longer eligible based on patient's age to complete this topic Insurance [facility] Care Teams Cruise Counselor Relationship Specialty Start Date End Date Roberta Leigh MD [address] [place] [address] [place] [address] PCP - General Family Medicine 05/13/21
--- OUTSIDE RECORDS SUMMARY | 2024-09-08 14:56 | XMS_ITS | Patient Health Summary ---
Author Organization [facility] [employer] Address [address] [place] [address] Care Team Providers Care International Marketing Specialist Name Role Phone Unavailable Primary Care Provider Unavailabl e Note from [facility],non-owned Affiliates and Associated Physician Practices is amultiple site organization consisting of ambulatory clinics and hospital sitesin [place], [place], [place] and [place]. This disclosure is being madepursuant to the Care Everywhere program and may not contain all information available regarding this patient. Last updated 18.[facility] [employer] Allergies No known active allergies Medications * [...] file Gender Identity Female 08/18/2020 2:38 PM CREDIT INTERN Sexual Orientation Not on file Last Filed Vital Signs Vital Sign Reading Time Taken Comments Blood Pressure 124/80 08/20/2020 4:00 PM CREDIT INTERN Pulse 74 08/20/2020 4:00 PM CREDIT INTERN Temperature 37.2 C (98.9 F) 08/20/2020 4:00 PM CREDIT INTERN Respiratory Rate 16 08/20/2020 4:00 PM CREDIT INTERN Oxygen Saturation 98% 08/20/2020 4:00 PM CREDIT INTERN Inhaled Oxygen Concentration - - Weight 95.3 kg (210 lb) 08/20/2020 4:00 PM CREDIT INTERN Height 172.7 cm (5' 8 ) 08/20/2020 4:00 PM CREDIT INTERN Body Mass Index 31.93 08/20/2020 4:00 PM CREDIT INTERN Procedures * SKIN TEST PPD - POINT OF CARE(Performed 08/20/2020) Performed for Screening for tuberculosis Results * (ABNORMAL) SKIN TEST PPD - POINT OF CARE (08/20/2020 3:57 PM CREDIT INTERN) PPD 0mm(Negati ve) [facility] [place] Other MISCELLANEOUS SAMPLE S / Unknown 08/20/2020 3:57 PM CREDIT INTERN [place] [employer] MANAGER-PATENT CHEMIST LAB - POINT OF CARE ORDERABLES [facility] [id number] [place] [address]
--- OUTSIDE RECORDS SUMMARY | 2024-09-08 14:57 | XMS_ITS | Data Portability ---
Author Organization [facility] [place] Address [address] [place] [address] Care Team Providers Care Microbiology Technician Name Role Phone ROBERTA YANG Primary Care Provider Assessment No assessment recorded. Plan of Treatment Reminders Order Date Submit Date Provider Last Modified By Organization Details Last Modified Time Details Appointments None record ed. Lab PPD (purif ied protei n deriva tive), skin test 2022 023 CARSON In-Office Order, Internal Use Only DO Not Attach Compendium DO Not Attach Compendium, Do Not Delete/merge, [id number] 3 11:08:10 CBC w/ auto diff 2022 023 LOWELL [facility], [address], [address], [place], [address], 3 19:08:40 HbA1c (hemog lobin A1c), blood 2022 023 CARSON [facility], [address], [address], [place], [address], 3 06:16:03 TSH, ultra- sensit deana, serum 2022 023 LOWELL [facility], [address], [address], [place], [address], 3 06:16:02 Referral rocio blair referr al 2023 024 CARSON Mae MD, [address] [facility] , [address], [place], [address], 4 14:58:24 nutrit ionist /vivian rosales referr al 2022 [facility]23 [facility] [address] [facility] , [place], [address], 4 13:04:44 Procedures None record ed. Surgeries None record ed. Imaging US, abdomi nal wall 2023 024 [facility], [address] [facility] , [place], [address], 4 16:25:33 Medication Orders Victoz a 3-Marcial 0.6 mg/0.1 mL (18 mg/3 mL) subcut aneous pen inject or 2022 023 [facility], [address] [place] [address], [address], 4 15:43:43 Victoz a 3-Marcial 0.6 mg/0.1 mL (18 mg/3 mL) subcut aneous pen inject or 2022 023 [facility], [address] [place], [address], 4 15:43:43 medrox yproge steron e 150 mg/mL intram uscula r syring e 2022 023 [email or web address] [facility], [address] [place] [address], [address], 4 16:40:55 Patient TargetsNo targets recorded. Patient Instructions Encounter Date Encounter Id Patient Instructions Last Modified By Organization Details Last Modified Time 06/08/2023 [id number] learning about tuberculosis (TB) mmetias Not available 06/08/2023 10:58:45 fatigue: care instructions mmetias Not available 06/08/2023 10:58:45 A healthy lifestyle: care instructions mmetias Not available 06/08/2023 10:58:44 body mass index: care instructions mmetias Not available 06/08/2023 10:58:44 learning about healthy weight mmetias Not available 06/08/2023 10:58:45 2023 [id number] constipation: care instructions mmetias Not available 2023 10:13:32 A healthy lifestyle: care instructions mmetias Not available 2023 10:11:44 10/11/2023 [id number] A healthy lifestyle: care instructions mmetias Not available 10/11/2023 17:01:11 12/22/2023 [id number] constipation: care instructions mmetias Not available 12/22/2023 16:38:05 A healthy lifestyle: care instructions mmetias Not available 12/22/2023 16:38:05 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 Body mass index 30+ - obesity Referring Physician: Roberta Yang [facility], Encounter Date: 06/08/2023 General Surgeon Referral for Reducible umbilical hernia Referring Physician: Roberta Yang [facility] Medicine, Encounter Date: 10/11/2023 Results Created Date Observation Date Name Description Value Unit Range Abnormal Flag Note LastModifiedBy Organization Detail LastModifiedTime 06/10/2006/10/2023 CBC WITH DIFFE RENTI AL/PL ATELE T WBC 8.7 x10e3 /uL 3.4-10 .8 Not Available [facility] Department [address] [place], [address], 06/10/2023 19:08:40 06/10/20 23 06/10/2023 CBC WITH DIFFE RENTI AL/PL ATELE T RBC 4.35 x10e6 /uL 3.77-5 .28 Not Available [facility] Department [address] [place], [address], 06/10/2023 19:08:40 06/10/20 23 06/10/2023 CBC WITH DIFFE RENTI AL/PL ATELE T hemoglobin 12.8 g/dL 11.1-1 5.9 Not Available [facility] Department [address] [place], [address], 06/10/2023 19:08:40 06/10/20 23 06/10/2023 CBC WITH DIFFE RENTI AL/PL ATELE T hematocrit 39.6 % 34.0-4 6.6 Not Available [facility] Department [address] [place], [address], 06/10/2023 19:08:40 06/10/20 23 06/10/2023 CBC WITH DIFFE RENTI AL/PL ATELE T MCV 91 fL 79-97 Not Available [facility] Department [address] [place], [address], 06/10/2023 19:08:40 06/10/20 23 06/10/2023 CBC WITH DIFFE RENTI AL/PL ATELE T MCH 29.4 pg 26.6-3 3.0 Not Available [facility] Department [address] [place], [address], 06/10/2023 19:08:40 06/10/20 23 06/10/2023 CBC WITH DIFFE RENTI AL/PL ATELE T MCHC 32.3 g/dL 31.5-3 5.7 Not Available [facility] Department [address] [place], [address], 06/10/2023 19:08:40 06/10/20 23 06/10/2023 CBC WITH DIFFE RENTI AL/PL ATELE T RDW 13.0 % 11.5-1 4.5 Not Available [facility] Department [address] [place], [address], 06/10/2023 19:08:40 06/10/20 23 06/10/2023 CBC WITH DIFFE RENTI AL/PL ATELE T platelets 256 x10e3 /uL 150-45 0 Not Available [facility] Department [address] [place], [address], 06/10/2023 19:08:40 06/10/20 23 06/10/2023 CBC WITH DIFFE RENTI AL/PL ATELE T neutrophils 56 % notest b. Not Available [facility] Department [address] [place], [address], 06/10/2023 19:08:40 06/10/20 23 06/10/2023 CBC WITH DIFFE RENTI AL/PL ATELE T lymphs 32 % notest b. Not Available [facility] Department [address] [place], [address], 06/10/2023 19:08:40 06/10/20 23 06/10/2023 CBC WITH DIFFE RENTI AL/PL ATELE T monocytes 7 % notest b. Not Available [facility] Department [address] [place], [address], 06/10/2023 19:08:40 06/10/20 23 06/10/2023 CBC WITH DIFFE RENTI AL/PL ATELE T eos 4 % notest b. Not Available [facility] Department [address] [place], [address], 06/10/2023 19:08:40 06/10/20 23 06/10/2023 CBC WITH DIFFE RENTI AL/PL ATELE T basos 1 % notest b. Not Available [facility] Department [address] [place], [address], 06/10/2023 19:08:40 06/10/20 23 06/10/2023 CBC WITH DIFFE RENTI AL/PL ATELE T neutrophils (absolute) 4.8 x10e3 /uL 1.4-7. 0 Not Available [facility] Department [address] [place], [address], 06/10/2023 19:08:40 06/10/20 23 06/10/2023 CBC WITH DIFFE RENTI AL/PL ATELE T lymphs (absolute) 2.8 x10e3 /uL 0.7-3. 1 Not Available [facility] Department [address] [place], [address], 06/10/2023 19:08:40 06/10/20 23 06/10/2023 CBC WITH DIFFE RENTI AL/PL ATELE T monocytes(ab solute) 0.6 x10e3 /uL 0.1-0. 9 Not Available [facility] Department [address] [place], [address], 06/10/2023 19:08:40 06/10/20 23 06/10/2023 CBC WITH DIFFE RENTI AL/PL ATELE T eos (absolute) 0.4 x10e3 /uL 0.0-0. 4 Not Available [facility] Department [address] [place], [address], 06/10/2023 19:08:40 06/10/20 23 06/10/2023 CBC WITH DIFFE RENTI AL/PL ATELE T baso (absolute) 0.1 x10e3 /uL 0.0-0. 2 Not Available [facility] Department [address] [place], [address], 06/10/2023 19:08:40 06/10/20 23 06/10/2023 CBC WITH DIFFE RENTI AL/PL ATELE T immature granulocytes 0.2 % notest b. Not Available [facility] Department [address] [place], [address], 06/10/2023 19:08:40 06/10/20 23 06/10/2023 CBC WITH DIFFE RENTI AL/PL ATELE T immature grans (abs) 0.0 x10e3 /uL 0.0-0. 1 Not Available [facility] Department [address] [place], [address], 06/10/2023 19:08:40 06/10/20 23 06/10/2023 CBC WITH DIFFE RENTI AL/PL ATELE T NRBC 0 % 0-0 Not Available [facility] Department [address] [place], [address], 06/10/2023 19:08:40 06/10/2006/11/2023 TSH RFX ON ABNOR MAL TO FREE T4 TSH 1.040 uIU/m L 0.450- 4.500 Not Available [facility] ([facility]) [address] [facility], [place], [address], 06/11/2023 06:16:02 06/10/2006/11/2023 HEMOG LOBIN A1C hemoglobin A1C 5.3 % 4.8-5. 6 Predi abete s: 5.7 - 6.4 Diabe eli: >6.4 Glyce mehul contr ol for adult s with diabe eli: <7.0 Not Available [facility] ([facility]) [address] [facility], [place], [address], 06/11/2023 06:16:03 11/19/19 24 11/17/2023 US, abdom inal wall No observ ation record ed. [email or web address], [address], 11/22/2023 15:47:51 Result Notes None recorded. Problems Name Problem SNOMED Code Status Onset Date Resolution Date Notes Provider Name and Address Organization Details Recorded Time Cardiac arrhythm ia 002949017 Active 2020 ROBERTA YANG MD Attn: Baldo duggan,[address] [facility], [place], [address], [facility] - [facility] 1 12:59:45 History of radiofre quency ablation operatio n for arrhythm ia 266544833 Active 2020 ROBERTA YANG MD Attn: Baldo duggan,[address] [facility], [place], [address], [facility] 1 13:01:55 Pregnanc y-induce d hyperten kika 20307228 Completed LAST Alise Isringhau sen [place], [place] - [facility] 6 17:33:05 Vaginal discharg e 062000316 Active Ely Hoffman MD Attn: Baldo olga lidia,[address] [place], [address], [place] [facility] 6 20:56:59 Vaginal discharg e 107507558 Completed [place], [place] [facility] 6 17:33:04 Nausea 935716987 Active Ely Hoffman MD Attn: Baldo duggan,[address] [facility], [place], [address], [place] [facility] 6 20:56:59 Nausea 909811694 Completed Alise Isringhau sen null, [place] - [facility] 6 17:33:04 Bacteria l vaginosi s 125715306 Active Ely Hoffman MD Attn: Baldo duggan,[address] [place], [address], [place] [facility] 6 20:56:59 Bacteria l vaginosi s 742988758 Completed [place] [facility] 6 17:33:05 Gestatio n period, 28 weeks 58673050 Active Ely Hoffman MD Attn: Baldo duggan,[address] [place], [address], [place] [facility] 6 20:56:59 Gestatio n period, 28 weeks 31501923 Completed [place] [facility] 6 17:33:04 Gestatio n period, 32 weeks 5464983 Active Ely Hoffman MD Attn: Baldo duggan,[address] [place], [address], [place] [facility] 6 20:56:59 Gestatio n period, 32 weeks 1829040 Completed [place] [facility] 6 17:33:05 Postpart um care Active Ely Hoffman MD Attn: Baldo g,[address] [facility], [place], [address], [place] [facility] 6 21:01:21 Problem Notes None recorded. Procedures Surgical History Date Name Laterality Status Provider Name and Address Organization Details Recorded Time 2 Generic Procedure completed Juan Lyle MD Attn: Accounting,[address] [facility], [place], [address], [place] [facility] 03/31/2022 13:20:16 2 Control Implant Removal completed ROBERTA YANG MD Attn: Accounting,[address] [facility], [place], [address], [place] [facility] 03/22/2022 12:21:23 1 Control Implant Insertion completed ROBERTA YANG MD Attn: Accounting,[address] [facility], [place], [address], [place] [facility] 06/04/2021 10:29:05 1 Control Implant Removal completed ARTIE Marks Attn: Accounting,[address] [facility], [place], [address], [place] [facility] 11/03/2020 14:36:33 8 Control Implant Insertion completed Ely Hoffman MD Attn: Accounting,[address] [facility], [place], [address], [place] [facility] 04/13/2018 10:41:14 7 Control Implant Removal completed Ely Hoffman MD Attn: Accounting,[address] [facility], [place], [address], [place] [facility] 03/11/2017 12:00:00 6 Control Implant Insertion completed Ely Hoffman MD Attn: Accounting,[address] [facility], [place], [address], [place] [facility] 05/24/2016 11:16:27 6 Date of Last Pap Smear completed Michelle Mariano [place] [facility] 03/05/2016 09:57:53 5 Control Implant Removal completed Juan Durbin [place] 11/07/2014 15:12:06 Heart Surgery completed Jaylin Willis [place] - [facility] 09/14/2016 11:56:46 Imaging Results Imaging Date Name Status LastModified by Organiz ation Details LastModified Time 11/17/2023 US, abdominal wall completed [facility] [address] [facility] , [place], [address], 11/22/2023 15:47:51 Procedure Notes None recorded. Medical Equipment None Reported. Allergies Allergen ID Allergen Name Allergen Category Reaction Reaction Severity Criticality Documentation Date Start Date Code Code System Note Provider Name and Address Organization Details Recorded Time 180027 Betadine medicatio n rash moderate high 10/11/2023 0 RxNorm Not Available Not Available Not [...] Available TRUEplus Pen Needle 31 gauge x 16 USE DIRECTED active Not Available Not Available No t Available Vitals Date Recorded Body height Body mass index (BMI) Body weight Oxygen saturation Oxygen saturation in Arterial blood by Pulse oximetry Heart rate Respiratory rate Body temperature Systolic blood pressure Diastolic blood pressure Provider Name and Address Organization Details Last Updated DateTime 3 172.72 cm 34.3 kg/m2 636074. 38 g 99 % 99 % 53 /min 16 /min 96.8 [degF] 130 mm[Hg] 77 mm[Hg] Roxy Beckett MA [facility] 3 10:55:54 Date Recorded Body height Body mass index (BMI) Body weight Body temperature Heart rate Respiratory rate Systolic blood pressure Diastolic blood pressure Provider Name and Address Organization Details Last Updated DateTime 3 172.72 cm 34.4 kg/m2 546721. 93 g 98.3 [degF] 68 /min 18 /min 110 mm[Hg] 68 mm[Hg] Lizzie Chavez MA [facility] 3 09:58:02 Date Recorded Body height Body mass index (BMI) Body weight Body temperature Heart rate Respiratory rate Systolic blood pressure Diastolic blood pressure Provider Name and Address Organization Details Last Updated DateTime 3 172.72 cm 33.4 kg/m2 46786.5 3 g 98.3 [degF] 68 /min 18 /min 112 mm[Hg] 80 mm[Hg] Lizzie Chavez MA [facility] 3 09:16:36 Date Recorded Body height Body mass index (BMI) Body weight Heart rate Oxygen saturation Oxygen saturation in Arterial blood by Pulse oximetry Body temperature Respiratory rate Systolic blood pressure Diastolic blood pressure Systolic blood pressure Diastolic blood pressure Provider Name and Address Organization Details Last Updated DateTime 4 172.72 cm 33.1 kg/m2 89688.6 4 g 59 /min 99 % 99 % 99.1 [degF] 18 /min 148 mm[Hg] 84 mm[Hg] 152 mm[Hg] 84 mm[Hg] Winter Correia LPN [facility] 4 16:52:41 Date Recorded Body height Body mass index (BMI) Body weight Body temperature Heart rate Respiratory rate Systolic blood pressure Diastolic blood pressure Provider Name and Address Organization Details Last Updated DateTime 4 172.72 cm 34.8 kg/m2 499989 g 98.3 [degF] 60 /min 18 /min 130 mm[Hg] 80 mm[Hg] Lizzie Chavez MA [facility] 4 15:43:25 Social History Question Answer Notes LastModified by Organizat ion Details LastModified Time Tobacco Smoking Status Never Smoker Juan bronson, [facility] 11/07/2014 15:12:18 Do You Have An [...] Have You Had Close Contact With A Laboratory-confir med COVID-19 While That Case Was Ill? No Information not available 03/26/2021 In The 14 Days Before Symptom Onset, Have You Had Close Contact With A Person Who Is Under Investigation For COVID-19 While That Person Was Ill? Yes Works Covid Floor At [employer] Information not available 03/26/2021 Have You [...] Or The Highest Degree You Have Received? [id number] Information not available 03/31/2022 What Is Your [...] Anxious, Or Unable To Sleep At Night)? [id number] Information not available 03/26/2021 Do You Use [...] Disorder N Colon Polyps N Heart Attack ([place]) N Diabetes N Cardiomyopathy N Blood Transfusions [...] Immunizations Vaccine Type Date Status Note Provider Nam e and Address Organization Details Recorded Time Tdap 12/26/2015 completed Not Available [facility] 08/11/2019 02:31:10 COVID-19, mRNA, LNP-S, PF, 100 mcg/0.5mL dose or 50 mcg/0.25mL dose 03/06/2021 completed ROBERTA YANG MD Attn: Accounting,[address] [place], [address], [facility] 05/04/2022 12:37:40 COVID-19, mRNA, LNP-S, PF, 100 mcg/0.5mL dose or 50 mcg/0.25mL dose 02/05/2021 completed ROBERTA YANG MD Attn: Accounting,[address] [place], [address], [facility] 05/04/2022 12:37:40 MMR 11/02/2022 completed Jaylin Tapia RN [facility], [place] - [facility] 11/02/2022 10:02:28 Past Encounters Encounter ID Performer Location Encounter Start Date Encounter Closed Date Diagnosis/Indication Diagnosis SNOMED-CT Code Diagnosis ICD10 Code Diagnosis Note [id number] Zulma Bhat ([facility] [address]) [address] [facility] [address] [place] [address] 11/07/2014 09:51:21 11/08/2014 12:44:25 Uses contraception [id number] [id number] Al[facility] M[facility] ([facility] [address]) [address] [facility] [place] [address] 08/26/2015 14:13:59 08/27/2015 08:57:07 28656480 Z33.1 Vaginal discharge 700218 006 N89.8 Nausea 753464599 R11.0 [id number] Al[facility] M[facility] ([facility] [address]) [address] [facility] [place] [address] 09/24/2015 10:51:48 09/29/2015 01:41:05 62070500 Z33.1 Second tri mester 30323667 Z34.92 [id number] Alise Moya Womenshayla ([facility] [address]) [address] [facility] [place] [address] 10/24/2015 10:28:00 10/25/2015 19:26:14 Gestation period, 19 weeks 90833408 Z3A.19 [id number] Alise Moya Womenshayla ([facility] [address]) [address] [facility] [place] [address] 11/20/2015 11:11:07 11/26/2015 13:48:19 Gestation period, 22 weeks 25585613 Z3A.22 [id number] Alise Moya Womenshayla ([facility] [address]) [address] [facility] [place] [address] 12/18/2015 09:19:55 12/18/2015 11:14:01 Normal 39558197 Z34.82 [id number] Al[facility] M[facility] ([facility] [address]) [address] [facility] [place] [address] 12/26/2015 11:44:35 12/26/2015 19:37:01 Gestation period, 28 weeks 17413941 Z3A.28 [id number] Alise cavazos [place] [facility] ([facility] [address]) [address] [place] [address] 01/09/2016 15:29:26 01/11/2016 18:58:10 Normal 93819207 Z34.82 [id number] Alise Monterroso en [place] [facility] ([facility] [address]) [address] [place] [address] 01/23/2016 09:15:45 01/23/2016 09:36:57 Gestation period, 32 weeks 5526911 Z3A.32 [id number] Alise Lauryningefren en [place] [facility] ([facility] [address]) [address] [place] [address] 02/06/2016 09:11:37 02/07/2016 12:17:18 Third trimester 91005260 Z3A.34 [id number] Alise Isringefren en [place] [facility] ([facility] [address]) [address] [place] [address] 02/13/2016 15:09:54 02/13/2016 15:50:01 Normal 01815282 Z34.83 support 40 1727178 Z39.1 [id number] Alise cavazos [place] [facility] ([facility] [address]) [address] [place] [address] 02/20/2016 11:45:37 02/20/2016 20:34:16 Normal 19051775 Z34.83 [id number] Alise cavazos [place] [facility] ([facility] [address]) [address] [place] [address] 02/27/2016 11:45:51 03/05/2016 19:28:55 Normal 31125877 Z34.83 [id number] Al[facility] M[facility] ([facility] [address]) [address] [place] [address] 03/05/2016 09:51:10 03/05/2016 20:15:37 Normal 09402273 Z34.83 [id number] Alise Monterroso en [place] [facility] ([facility] [address]) [address] [place] [address] 03/12/2016 10:29:52 03/13/2016 00:30:51 Normal 06704316 Z34.83 [id number] Alise Monterroso en [place] [facility] ([facility] [address]) [address] [place] [address] 03/15/2016 15:27:04 03/15/2016 18:29:47 Normal 10573273 Z34.83 [id number] MD [place] Mercado ([facility] [address]) [address] [facility] [place] [address] 04/02/2016 10:43:54 04/03/2016 21:01:50 care 075382070 Z39.2 [id number] Shaniqua Strauss [place] Bhat ([facility] [address]) [address] [facility] [place] [address] 05/04/2016 14:17:28 05/28/2016 12:13:43 care 324844133 Z39.2 Venereal d isease screening 202167409 Z11.3 [id number] MD [place] Mercado ([facility] [address]) [address] [facility] [place] [address] 05/24/2016 10:31:53 05/24/2016 11:17:16 Contraception care 275281478 Z30.40 [id number] MD [place] Mercado ([facility] [address]) [address] [facility] [place] [address] 06/23/2016 10:16:40 06/23/2016 10:41:40 Contraception care management 288574828 Z30.9 [id number] SHARON Tang ([facility] [address]) [address] [facility] [place] [address] 09/14/2016 11:43:51 09/15/2016 09:04:36 History of radiofrequency ablation operation for arrhythmia 284400388 Z98.890 Will continue care with cardiology and cardiac surgeon-wi ll return for any new or worsening of s/s [id number] MD [place] Mercado ([facility] [address]) [address] [facility] [place] [address] 03/11/2017 11:30:40 03/11/2017 12:07:03 Contraception care 270402728 Z30.40 [id number] MD [place] Mercado 14 OB [address] [facility] [place] [address] 04/13/2018 10:01:27 04/13/2018 10:45:59 Contraception care 494266528 Z30.40 Nexplanon device was inserted without any complicati ons. Patient was instructed to use a back up method of control for 2 weeks. [id number] MD [place] Mercado 14 OB [address] [facility] [place] [address] 05/17/2018 10:08:17 05/17/2018 10:57:19 Contraception care management 514815219 Z30.9 - Patient was reassured. Side effect profile of the Nexplanon device was reviewed with the patient. [id number] GABRIELA Marks- [place] 14 OB [address] [facility] [place] [address] 11/03/2020 13:47:56 11/04/2020 13:34:48 Removal of subcutaneous contraceptive 882346548 Z30.46 Nexplanon removed without issue. Pt verbalizes that fertility will resume and if trying to become , she needs to begin vits now. Pt verbalized understand ing. Pt will follow up as needed for annual, sooner if needed or if pt would like new form of control. [id number] MD [place] DAY [address] [facility] [place] [address] 03/26/2021 11:50:57 03/27/2021 06:20:27 Body mass index 30+ - obesity 974572472 Z68.33 - Encouraged increasing aerobic exercise to at least 150min per week, and discussed the use of MyPlate method with emphasis on increasing fruit and vegetable consumptio n and limiting processed foods and added sugars Cardiac arrhythmia 23066 7007 I49.9 History of cardiac arrhythmia w/ PVCs s/p ablation in 2017[facility] again for the past 6 months with physical exertionEK G in office demonstrat es bradaditi a with possible sinus arrhythmia will obtain bloodwork to rule out other causescard iology referral placed for possible need of addition interventi ons/medica tions History of radiofrequency ablation operation for arrhythmia 907643486 Z98.890 done at [place] on 11/04/2016 [id number] MD [place] DAY [address] [facility] [place] [address] 04/20/2021 10:50:42 04/21/2021 17:11:24 Contraception care management 015545276 Z30.9 - Discussed Hormonal vs copper IUD vs nexplanon, provided reading material- Patient will consider options and call with to schedule appt for placement, will inform choice during scheduling to order appropriat e device- Pap to be performed prior to insertion of IUD at follow up Intermitte nt palpitations 393736592 R00.2 - work up so far: CBC, BMP, Mg, TSH, Iron/TIBC/ Ferritin all normal- Given history of ablation, referred to cardiology for further work up, appt scheduled May 13- Will refer to counseling to develop coping techniques when having anxiety that triggers palpitatio ns [id number] MD [place] DAY [address] [facility] [place] [address] 06/04/2021 09:54:25 06/05/2021 00:21:46 Insertion of subcutaneous contraceptive 104914805 Z30.9 patient consented, nexplanon inserted without issueadvis ed to use a barrier method or refrain from unprotecte d sex for the next 7 days due to still being at risk of (not within first 7 days of period)in office UPT negative Screening for malignant neoplasm of cervix 481906518 Z12.4 Pap done, yeast infection noted on pap Candidiasis of vagina 72 706235 B37.3 yeast infection noted on pap, patient denies itching or burning, but often gets yeast infection after preriod, interested in getting treated. [id number] DK Ruvalcaba [address] [place] [address] 12/16/2021 09:12:33 12/17/2021 10:43:01 COVID-19 298535164 U07.1 -To quarantine .-Increase fluid intake-Can use tylenol or ibuprofen for fever or pain-Can continue zofran for nausea.-To alert clinic if any new or wosening symptoms. [id number] MD [place] DAY [address] [place] [address] 03/22/2022 10:16:26 03/23/2022 13:43:53 Removal of subcutaneous contraceptive 186717147 Z30.46 Nexplanon too deep, unsuccessf ul removal in office, will refer to OBGYN for removal, appreciate assistance [id number] MD Veda Warner [address] [place] [address] [place] [address] 03/31/2022 11:20:34 04/01/2022 10:48:49 Surveillance of subcutaneous contraceptive implant [id number] Z30.46 --Unable to remove Nexplanon, Implanted too deep [id number] MD Veda DAY 14 IM [address] [facility] [place] [address] 09/14/2022 10:50:20 09/15/2022 12:37:41 Contraception care management [id number] Z30.9 - Risks/bene fits/alter natives of Nexplanon. [...] provided Body mass index 30+ - obesity 989258127 Z68.34 - Encouraged increasing aerobic exercise to at least 150min per week, and discussed the use of MyPlate method with emphasis on increasing fruit and vegetable consumptio n and limiting processed foods and added sugars Immunization due 6108715 08 Z28.39 counselled on Moderna Bivalent booster, will think about it and come back when with nurse visit to get it done [id number] CODI Nieves 14 IM [address] [facility] [place] [address] 09/20/2022 10:24:16 09/23/2022 10:16:05 Contraception care management 313670347 Z30.9 - Discussed Hormonal vs copper IUD vs nexplanon, provided reading material- Patient will consider options and call with to schedule appt for placement, will inform choice during scheduling to order appropriat e device [id number] MD Veda DAY 14 IM [address] [facility] [place] [address] 10/26/2022 09:29:54 11/05/2022 10:35:53 Obesity 441932685 E66.9 History an d physical examination, pre-employment 144476405 Z02.1 Work physical form completed and scanned into chart,form requesting proof of MMR vaccinatio n or immunity, no access to vaccine record, check MMR titres, vaccinate accordingl y Tuberculos is screening 303250498 Z11.1 PPD not available in clinic at this time, will check Quantifero n [id number] CODI Nieves 14 IM [address] [place] [address] 11/02/2022 09:33:25 11/23/2022 08:47:44 Immunization due 241224932 Z28.39 counselled on Moderna Bivalent booster, will think about it and come back when with nurse visit to get it done Contracept ion care management 851462627 Z30.9 - Discussed Hormonal vs copper IUD vs nexplanon, provided reading material- Patient will consider options and call with to schedule appt for placement, will inform choice during scheduling to order appropriat e device [id number] CODI Nieves 14 IM [address] [facility] [place] [address] 12/14/2022 09:20:04 12/22/2022 10:47:53 Contraception care management 246433220 Z30.9 - Discussed Hormonal vs copper IUD vs nexplanon, provided reading material- Patient will consider options and call with to schedule appt for placement, will inform choice during scheduling to order appropriat e device [id number] EB Cedillo 14 IM [address] [facility] [place] [address] 03/04/2023 09:16:47 03/07/2023 13:02:41 Contraception care management 594231763 Z30.9 - Discussed Hormonal vs copper IUD vs nexplanon, provided reading material- Patient will consider options and call with to schedule appt for placement, will inform choice during scheduling to order appropriat e device [id number] EB Reagan 14 IM [address] [facility] [address] 06/03/2023 10:20:36 06/09/2023 10:19:45 Depot contraceptive repeated 496179869 Z92.0 [id number] MD Veda DAY 14 IM [address] [facility] [address] 06/08/2023 09:42:44 06/14/2023 10:42:50 Tuberculosis screening 675732096 Z11.1 As above Body mass index 30+ - obesity 311046361 Z68.34 Patient has been working diligently on losing weight, however is frustrated that she has not lost any weight despite increasing her physical activity and monitoring her diet- Encouraged increasing aerobic exercise to at least 150min per week, and discussed the use of MyPlate method with emphasis on increasing fruit and vegetable consumptio n and limiting processed foods and added sugars Referral to dietitian placed Check hemoglobin A1c, TSH to monitor for other causes Start Victoza to assist with weight loss, start at 0.6 mg daily x1 week then increase by 0.6 mg every week up to 1.8 mg daily RTC in 4 to 6 weeks to monitor response to medication and diet Malaise and fatigue [id number] R53.83 Unclear etiology of generalize d fatigue, possibly related to sleep hygiene VS endocrine causes VS hematologi c causes VS mood Check CBC/TSH to rule out other causes Advised to continue monitoring symptoms and to discuss at follow-up History an d physical examination, pre-employment 531335728 Z02.1 Work physical form completed and scanned into chart,Vacc ine record check, patient up-to-date on required vaccines for work Form does require PPD, PPD injected today, RTC in 48 hours for interpreta tion [id number] MD Veda DAY 14 IM [address] [facility] [address] [place] [address] 2023 08:56:33 07/11/2023 13:39:24 Obesity 908148359 E66.9 Patient continues to be on Victoza, [...] nauseaRTC in 1 month for follow-up Constipation 68769560 K5 9.00 Advised patient to increase fiber intake, consider using OTC fiber supplement s like Metamucil or stool softener like MiraLAX. [id number] MD Veda DAY 14 IM [address] [facility] [place] [address] 10/11/2023 16:24:53 11/03/2023 10:40:13 Obesity 891220633 E66.9 Continue on Victoza 1.8 mg daily Reducible umbilical hernia 068215847 K42.9 Small reducible umbilical hernia noted on examNo evidence of incarcerat ion at this time Will obtain abdominal wall ultrasound to further evaluate General surgery referral placed [id number] MD Veda DAY 14 IM [address] [facility] [place] [address] 12/22/2023 15:31:11 12/26/2023 14:08:02 Obesity 948960548 E66.9 History of repair of umbilical hernia 569259798 Z98.890 open umbical hernia repair on 12/13/[address] Maday headcitipetrona ns per general surgeryavo id straining or heavy lifiting Constipation 18573071 K5 9.04 Advised patient to increase fiber [...] Bermeo Member ID Guarantor Name 06/03/2023 1 [facility] ON OR AFTER 01/22/21 (MEDICAID REPLACEMENT - HMO) Barbara Rod [id number] Barbara Rod 06/08/2023 1 [facility] ON OR AFTER 01/22/21 (MEDICAID REPLACEMENT - HMO) Barbara Rod [id number] Barbara Rod 2023 1 [facility] ON OR AFTER 01/22/21 (MEDICAID REPLACEMENT - HMO) Barbara Rod [id number] Barbara Rod 10/11/2023 1 [facility] ON OR AFTER 01/22/21 (MEDICAID REPLACEMENT - HMO) Barbara Rod [id number] Barbarapolly Velasco 12/22/2023 1 [facility] ON OR AFTER 21 (MEDICAID REPLACEMENT - HMO) Barbara Velasco [id number] Barbara Velasco Notes Date Note Type Note [...] more fruits/veg and does workout videos on [employer] and walks 4x per week for the past few months. Not working out the past couple weeks though. She states she has always been overweight since she was younger and many of her family members struggle with their weight as well. no concerns with mood. denies any dizziness, blurred vision, SOB, CP, abdominal pain, N/V, or numbness/tingling ROBERTA YANG MD Attn: Accounting[address] [place], [address], [place] [facility] 06/13/2023 11:19:20 2023 text/html Barbara Velasco is [...] frequency/urgency, BLE swelling, ROBERTA YANG MD Attn: Accounting, [address] [place], [address], [facility] 07/10/2023 18:36:00 10/11/2023 text/html 33-year-old femcalin le here to discuss concern about a [...] get it fixed ROBERTA YANG MD Attn: Accounting, [address] [place], [address], [facility] 11/03/2023 08:55:14 12/22/2023 text/html here for follow up on umbilical hernia repairs/p open umbilical her[facility] by Dr. Berg appt on December 26 with surgeonpain free today, felt slight discomfort this morning, tight and itchytaking occasional percocet, which helped, now managing with tylenol still constipated, 1-2 BMs per week denies any LOMBARDO, dizziness, blurred vision, CP, SOB, palpitations, abdominal pain, N/V, or numbness/tingling ROBERTA YANG MD Attn: Accounting, [address] [place], [address], [facility] 12/24/2023 01:19:10 OBGyn Episode Ob Episode Information Episode Created Date Number of Fetuses Patient Bloodtype Patient rh Status Prepregnancy Weight lbs Domestic Partner Domestic Partner Phone Father Name Healthcare Translator Status 07/29/19 16 1 CLOSED Fetus Data First Name Last Name Admitted to NICU Weight (g) Sex Living Outcome Pediatric Complications Fetus ID Race Codes Race Delivery Type 3373.59 05 F [id number] Vaginal Tomas Calculation Initial Tomas Date Initial [...] Complications Tubal Sterilization Discharge Date Comments 1 [facility]- idural 40 HAD TO GET INDUCE Discharge Information Feeding Method Contraceptive Method Maternal HG B and HCT Levels Ob Episode Information Episode Created Date Number of Fetuses Patient Bloodtype Patient rh Status Prepregnancy Weight lbs Domestic Partner Domestic Partner Phone Father Name Healthcare Translator Status 07/29/19 16 1 O Negative [facility] Fetus Data First Name Last Name Admitted to NICU Weight (g) Sex Living Outcome Pediatric Complications Fetus ID Race Codes Race Delivery Type Portia Velasco false 3628.73 6 F true Full Term [id number] White Vaginal Problems Problem Notes Problem Name Start Date End Date Resolution Snomed Code Not e -induced hypertension 32172504 LAST Vaginal discharge [id number] Nausea 079656378 Bacterial vaginosis 023101922 Gestation period, 28 weeks [phone] 00309 Gestation period, 32 weeks 770 7000 Tomas Calculation Initial Tomas Date Initial Exam Date Initial Exam Provider Initial Ultrasound Date Last Menstrual Period Date Ultra Sound Weeks Gestation 03/19/2016 07/29/2015 carmen 08/13/2015 06/13/2015 8 Eighteen To Twenty Week [...] Type Weight in lbs Pre/Post Dialysis Refused 181.389016902390 BP Diastolic BP Location Tested BP Systolic [...] Type Weight in lbs Pre/Post Dialysis Refused 183.535606141196 BP Diastolic BP Location Tested BP Systolic [...] Type Weight in lbs Pre/Post Dialysis Refused 184.471157692364 BP Diastolic BP Location Tested BP Systolic [...] Type Weight in lbs Pre/Post Dialysis Refused 189.485275771284 BP Diastolic BP Location Tested BP Systolic [...] Type Weight in lbs Pre/Post Dialysis Refused 194.787136098293 BP Diastolic BP Location Tested BP Systolic [...] Type Weight in lbs Pre/Post Dialysis Refused 193.58884167750 BP Diastolic BP Location Tested BP Systolic [...] Type Weight in lbs Pre/Post Dialysis Refused 197.772276133335 BP Diastolic BP Location Tested BP Systolic [...] Type Weight in lbs Pre/Post Dialysis Refused 200.811624372381 BP Diastolic BP Location Tested BP Systolic [...] visit. Patient has been cleared by the transmission and protection engineer to [facility] given concerns about PVC's. Flowsheet Date 02/13/2016 Prince Score Blood Edema Fundus Height Fundus Units Glucose Ketones Leukocytes Nitrite Labor Signs Protein Cervic Dilation Cervic Effacement Cervic Station neg 36 none small 1+ Type Weight in lbs Pre/Post Dialysis Refused 205.620404137857 BP Diastolic BP Location Tested BP Systolic [...] Type Weight in lbs Pre/Post Dialysis Refused 206.072868999526 BP Diastolic BP Location Tested BP Systolic [...] Type Weight in lbs Pre/Post Dialysis Refused 210.320737953201 BP Diastolic BP Location Tested BP Systolic [...] Type Weight in lbs Pre/Post Dialysis Refused 210.569700425378 210.034144124153 BP Diastolic BP Location Tested BP Systolic BP Type 80 120 sitting 80 120 sitting Fetus Heart Rate Present A 155 Fetus Movement A Yes Comments Patient refers occasional co ntractions. Denies vaginal bleeding or leakage of fluid. Reports good movements. Will schedule for IOL at 40 weeks. Flowsheet Date 03/12/2016 Prinec Score Blood Edema Fundus Height Fundus Units Glucose Ketones Leukocytes Nitrite Labor Signs Protein Cervic Dilation Cervic Effacement Cervic Station 40 1cm 50% -3 Type Weight in lbs Pre/Post Dialysis Refused 217.250134835131 BP Diastolic BP Location Tested BP Systolic BP Type 92 138 sitting Fetus Heart Rate Present A 150 Fetus Movement A Yes Comments Patient reports chest pain t hat resolved. BP today is elevated. Patient reports headaches last night. Denies blurring of vision and epigastric pain.Patient is scheduled for [facility] in one week. Flowsheet Date 03/15/2016 Prince Score Blood Edema Fundus Height Fundus Units Glucose Ketones Leukocytes Nitrite Labor Signs Protein Cervic Dilation Cervic Effacement Cervic Station neg none none negative neg 2cm 50% - 3 Type Weight in lbs Pre/Post Dialysis Refused 220.053249377827 BP Diastolic BP Location Tested BP Systolic [...] Estim ated Date of Delivery false Thalassemia (St Lucian, Belarusian, Mediterranean, Or Background): MCV < 80 false Neural Tube Defect (Meningomyelocele, Spina Bifi da, Or Anencephaly) false Congenital Heart Defect false Down Syndrome false Miguel-Sachs (eg, Mandaeism, Cajun, Greenlandic-Hewlett) f alse Gian Disease false Sickle Cell Disease Or Trait () false Hemophilia Or Other Blood Disorders false Muscular Dystrophy false Cystic Fibrosis false Mccone's Chorea false Mental Retardation/Autism false If Yes, [...] Sterilization Discharge Date Comments 6 Induce d [facility]- idural [address] Hoffman 03/21/2016 Discharge Information Feeding Method Contraceptive Method Maternal HG B and HCT Levels Breast
[2024-09-08 15:03] VITALS: BP 139/76; PULSE 50; RESP 16; TEMP 36.9; O2SAT 100
--- NOTE | 2024-09-08 15:14 | ECG_ITS ---
Test Date: 2024-09-08 15:17:27 Measurements Intervals [place] Rate: 54 P: 25 WI: 137 QRS: 30 QRSD: 84 T: 31 QT: 408 QTc: 388 Interpretive Statements SINUS BRADYCARDIA WITH OCCASIONAL VENTRICULAR PREMATURE COMPLEXES POSSIBLE LEFT ATRIAL ENLARGEMENT BORDERLINE ECG No previous ECG available for comparison Electronically Signed On 09-09-2024 08:14:46 LICENSED ACUPUNCTURIST by Bridger King D.O.
--- NOTE | 2024-09-08 15:30 | ED.GENADULT ---
HPI - General Adult General Chief complaint: Upper Respiratory Infection Stated complaint: Chest Pain Source: patient Mode of arrival: ambulatory Limitations: no limitations History of Present Illness HPI narrative: Patient presents for evaluation of chest pain. Symptom onset 1030 this morning. She was cleaning her car at the time of symptom onset. Her pain has been constant since that time. Pain is in the sternal region, is sharp, and rated 8/10 in severity. She also reports some back pain that is bilateral in location. She does not provide me with additional details related to this pain. She denies SOB but has experienced a cough for several weeks. She states she has a history of cardiac arrhythmia that was treated with ablation back in 2017. She is no longer under the care of cardiology. She is not on any prescription medications. She does not use illicit druhs. Related Data Home Medications ?Medication ?Instructions ?Recorded ?Confirmed ?Last Taken ?Type No Home Medications 08/11/24 08/11/24 Unknown History Allergies Allergy/AdvReac Type Severity Reaction Status Date / Time No Known Allergies Allergy Verified 09/08/24 14:59 Review of Systems Review of Systems: CONSTITUTIONAL: Denies fever, chills, or sweats. EYES: Denies visual changes, redness, or discharge. ENT: Denies rhinorrhea, congestion, sore throat, or otalgia. CARDIOVASCULAR: Reports chest pain. Palpitations, or edema. RESPIRATORY: Reports cough. Denies shortness of breath. GASTROINTESTINAL: Denies abdominal pain, nausea, vomiting, or diarrhea. GENITOURINARY: Denies dysuria or hematuria. SKIN: Denies rash or itching. MUSCULOSKELETAL: Reports back pain. Joint pain, or myalgia. NEUROLOGIC: Denies headache, numbness, dizziness, or weakness. PSYCHIATRIC: Denies anxiety or depression. [facility] Past Medical History Medical History Cardiac arrhythmia Surgical History Surgical History H/O cardiac radiofrequency ablation Family History Family History Mother Family history non-contributory Social History Social History Substance use: never Living arrangements: with family Gender identity (if verbalized by the patient): Female Sexual Orientation (if Verbalized by the Patient): Straight or Heterosexual Spiritual care concerns: No Exam Narrative: GENERAL: Well-appearing, well-nourished, and in no acute distress. HEAD: Normocephalic, atraumatic. EYES: PERRLA and EOMI. ENT: Nares clear, no rhinorrhea or epistaxis. Mucous membranes moist. Oropharynx without tonsillar hypertrophy exudate or other lesions. Bilateral TMs pearly trejo nonbulging NECK: Supple. No adenopathy or masses. No carotid bruits or JVD CHEST: Clear to auscultation. No respiratory distress. No wheezes rales or rhonchi HEART: Regular rate and rhythm. No murmur heard. Normal peripheral pulses. ABDOMEN: Soft, nontender, nondistended, normal active bowel sounds. EXTREMITIES: Normal range of motion. No edema. SKIN: Warm, dry, no rash. NEURO: No focal deficits. Alert and oriented x3. PSYCH: Normal mood and affect. Course Course Emergency Course: This is a 34-year-old female who presented for evaluation chest pain. She has a history of cardiac ablation. I was advised by nursing staff that her heart rate was in the 30's while in triage. While I was in the room with her, her heart rate remained in the 50's. I recommended she be transferred to the ER for further evaluation. [facility] is her facility of choice. I contacted [facility] and spoke with CODI Anderson. She indicates that Dr Ashley will accept pt for transfer there. Pt was transferred via EMS. Level of Care: Express Care Visit Vital Signs Vital signs: Vital Signs Temperature 36.9 C 09/08/24 15:03 Pulse Rate 50 L 09/08/24 15:03 Respiratory Rate 16 09/08/24 15:03 Blood Pressure 139/76 09/08/24 15:03 Pulse Oximetry 100 09/08/24 15:03 Oxygen Delivery Room Air 09/08/24 15:03 Temperature 36.9 C 09/08/24 15:03 Pulse Rate 50 L 09/08/24 15:03 Respiratory Rate 16 09/08/24 15:03 Blood Pressure 139/76 09/08/24 15:03 Pulse Oximetry 100 09/08/24 15:03 Oxygen Delivery Room Air 09/08/24 15:03 Medical Decision Making Vital Signs Vital Signs: Vital Signs Temperature 36.9 C 09/08/24 15:03 Pulse Rate 50 L 09/08/24 15:03 Respiratory Rate 16 09/08/24 15:03 Blood Pressure 139/76 09/08/24 15:03 Pulse Oximetry 100 09/08/24 15:03 Oxygen Delivery Room Air 09/08/24 15:03 Temperature 36.9 C 09/08/24 15:03 Pulse Rate 50 L 09/08/24 15:03 Respiratory Rate 16 09/08/24 15:03 Blood Pressure 139/76 09/08/24 15:03 Pulse Oximetry 100 09/08/24 15:03 Oxygen Delivery Room Air 09/08/24 15:03 ECG Data EKG #1: ECG completion date: 09/08/24 ECG completion time: 15:17 Interpretation: Sinus bradycardia, rate 54, PVCs, left atrial allergy Discharge Plan Discharge Clinical Impression: Chest pain Patient Disposition: Acute Care Hospital Condition: Stable Patient Language: Armenian Prescriptions: No Action No Home Medications ibuprofen 800 mg tablet 800 mg PO TID PRN (Reason: pain) Qty: 15 0RF lidocaine HCl [Lidocaine Viscous] 2 % solution 1 applic mucous membrane TID PRN (Reason: pain) Qty: 100 0RF Rx Instructions: apply with cotton swab to site of pain amoxicillin-pot clavulanate 875-125 mg tablet 1 tablet PO Q12H 7 Days Qty: 14 0RF Follow-up/Referrals: UNKNOWN,DOCTOR [Primary Care Provider] - Time of Disposition: 15:42
[2024-09-08 15:40] VITALS: PULSE 54; O2SAT 99
== END 2024-09-08 15:40 | disposition short-term general hospital (02) ==
PROVIDERS: Emergency Provider Nurse Practitioner
DX: R07.9 Chest pain, unspecified (principal)
CPT/HCPCS: 93005; 99215; G0463